=== PATIENT | female | born 1945 | race Caucasian/White ===

== ENCOUNTER 2020-06-06 14:37 | Emergency (ER) | payer MEDICARE, OTHER, SELFPAY ==
--- NOTE | ~2020-06-06 | CT_ITS ---
EXAMINATION: CT ABDOMEN AND PELVIS WITHOUT CONTRAST CLINICAL INFORMATION: Abdominal pain. Nausea. Vomiting. COMPARISON: CT scan abdomen pelvis 12/11/2018 TECHNIQUE: Multidetector volumetric imaging was performed from the superior aspect of the liver through the pubic symphysis. Sagittal and coronal reformatted images were obtained on the technologist's workstation. This CT examination was performed using dose optimization techniques as appropriate, variously including the following: *Automated exposure control *Adjustment of mA and/or kV according to patient size (this includes techniques or standardized protocols for targeted exams where dose is matched to indication/reason for exam; i.e. extremities or head) *Use of iterative reconstruction technique DLP: 734 mGy-cm FINDINGS: LUNG BASES: The visualized lung bases are unremarkable. LIVER, GALLBLADDER, AND BILIARY TREE: The liver is normal in size, shape, and attenuation. No focal hepatic lesion or biliary ductal dilatation is present. The gallbladder is unremarkable with no evidence of radiopaque gallstones, gallbladder wall thickening, or obvious pericholecystic inflammatory changes. PANCREAS: Unremarkable. SPLEEN: Unremarkable. ADRENAL GLANDS: Unremarkable. KIDNEYS AND URETERS: The kidneys are normal in size, shape, and attenuation. No hydronephrosis, hydroureter, or calculi seen. No perinephric stranding. BLADDER: Unremarkable. GASTROINTESTINAL TRACT: There are scattered diverticula of the sigmoid colon and descending colon. There is no diverticulitis. There is no bowel wall thickening /edema. There is no bowel obstruction. There is a moderate volume of stool in the colon. The appendix is nonvisualized . The small bowel loops are unremarkable. The stomach is normal. There is no hiatal hernia. ABDOMINAL WALL: No significant hernia is appreciated. LYMPH NODES: Normal. VASCULAR: Scattered vascular wall calcifications of the aorta. There is no aneurysm. PELVIC VISCERA: Unremarkable. OSSEOUS STRUCTURES: Multilevel degenerative spondylosis spine. Degenerative joint disease of hips bilateral. No acute osseous abnormalities. CT/CT abdomen pelvis wo con IMPRESSION: There is no acute abnormality the abdomen or the pelvis. There is diverticulosis of the sigmoid colon and left colon but no evidence of diverticulitis
[2020-06-06 16:32] VITALS: BP 145/86; PULSE 85; RESP 18; TEMP 36.4; O2SAT 97; BMI 31.7
--- NOTE | 2020-06-06 23:26 | ED.ABDPAIN ---
HPI - Abdominal Pain General Chief Complaint: Abdominal Pain Stated Complaint: abd pain Time Seen by Provider: 06/06/20 23:09 Source: patient Mode of arrival: ambulatory Limitations: no limitations History of Present Illness HPI narrative: 75 years old female walked in with lower abdominal pain, started 4 days ago, described it as a moderate dull/crampy abdominal pain, 8/10, pain is constant for the past 4 days, pain is associated with nausea and vomiting, and diarrhea with bright red blood toward the end of the bowel movement. Food makes the symptoms worse, nothing make it better, patient had similar symptoms in the past when she had diverticulitis the patient did not require hospitalization for the symptoms in the past. No past surgical abdominal history. Related Data Previous Rx's Medication Instructions Recorded ondansetron HCl [Zofran] 4 mg PO Q8H PRN #7 tab 06/07/20 Allergies Allergy/AdvReac Type Severity Reaction Status Date / Time latex [LATEX] Allergy Unknown BREATHING Verified 06/06/20 16:31 DIFFICULTIES Sulfa (Sulfonamide Allergy Unknown BREATHING Verified 06/06/20 16:31 Antibiotics) DIFFICULTIES [SULFA (SULFONAMIDE ANTIBIOTICS)] SEASONAL ALLERGIES Allergy Unknown SINUS Uncoded 12/30/19 15:16 PROBLEMS Review of Systems Review of Systems All other systems are reviewed and are negative Constitutional: Reports as per HPI and Reports no additional constitutional complaints Eyes: Reports as per HPI and Reports no additional eye complaints Reports system reviewed and no additional complaints, except as documented Cardiovascular: Reports as per HPI and Reports no additional cardiovascular complaints Respiratory: Reports as per HPI and Reports no additional respiratory complaints Gastrointestinal: Reports as per HPI and Reports no additional gastrointestinal complaints Genitourinary: Reports no additional female genitourinary complaints Musculoskeletal: Reports no additional musculoskeletal complaints Skin/Breast: Reports system reviewed and no additional complaints, except as docu Psychiatric: Reports no additional psychiatric complaints Endocrine: Reports no additional endocrine complaints Hematologic/Lymphatic: Reports no additional hematologic/lymphatic complaints Allergic/Immunologic: Reports no additional allergic/immunologic complaints Reports system reviewed and no additional complaints, except as documented and Reports Abnormal speech present Physical Exam Vital Signs: Vital Signs: Last Vital Signs Temp 98.6 F 06/07/20 00:00 Pulse 75 06/07/20 00:00 Resp 16 06/07/20 00:00 BP 141/83 H 06/07/20 00:00 Pulse Ox 99 06/07/20 00:00 Body Mass Index 31.7 Vital signs have been reviewed as appeared to be correct. Blood pressure in the high range, Heart rate normal. Respiration rate normal. Temperature normal. Oxygen saturation normal. Appearance: Alert. Oriented X3. No acute distress. Head: Normal external exam. Normocephalic. Atraumatic. No Bates signs noted. No raccoon eyes noted Eyes: PERRLA. EOMI. Conjunctiva and sclera normal. Eyelids normal. ENT: TM's Normal. Pharynx normal. Uvula midline. Moist mucous membranes. No trismus noted. No drooling noted. No muffled voice noted. Neck: Normal inspection. Neck supple. FROM. No adenopathy. Thyroid Normal. No meningeal signs. No neck mass noted. CVS: Normal heart rate and rhythm. Heart sound normal. No murmurs noted. Pulses normal throughout. Respiratory: No respiratory distress. Painless inspiration. Breath sounds normal. No wheezes/rales/rhonchi noted. Chest nontender. No accessory muscle usage noted or decreased air movement noted. Abdomen: Soft, mild lower abdominal tenderness, no rebound tenderness, no guarding. Bowel sounds normal in all 4 quadrants. No distention noted. No organomegaly noted. No visible injury noted. Back: No CVA tenderness. Full range of motion noted. Skin: Skin warm and dry. Normal skin color. Normal skin turgor. No rashes/lesions/lacerations noted. Extremities: No lower extremity edema. Extremities exhibit normal range of motion. Extremities nontender. Neuro: Oriented X 3. No motor deficit. No sensory deficit. Reflexes normal. Course Course Course Narrative: 75-year-old female presented with lower abdominal pain, patient had unremarkable labs no leukocytosis, no sign of dehydration, stable vital signs, CT of the abdomen pelvis showed no acute intra-abdominal pathology. Patient is also known to have IBS which could contribute to patient's symptoms. Patient unable to give us UA in the emergency department but patient declined any UTI symptoms. Discharge the patient with Zofran prescription and encouraged to drink plenty of fluids. MDM - Abdominal Pain Lab Data Attestation: I reviewed the patient's lab results. Result diagrams: 06/06/20 23:57 06/06/20 23:57 Labs: Lab Results 06/06/20 06/06/20 06/06/20 Range/Units 23:56 23:57 23:57 WBC 7.9 (4.8-10.8) X10*3/uL RBC 4.74 (4.20-5.50) X10*6/uL Hgb 14.3 (12.0-16.0) g/dl Hct 43.5 (37-47) % MCV 91.8 (80-98) fL MCH 30.2 (27.0-33.0) pg MCHC 32.9 (31.0-35.0) g/dl RDW 12.2 (11.0-16.0) % Plt Count 262 (160-400) X10*3/uL MPV 9.3 L (9.4-12.3) fL Immature Gran % (Auto) 0.4 (0.0-0.4) % Neut % (Auto) 68.6 (45-73) % Lymph % (Auto) 21.3 (20-40) % [place] % (Auto) 8.3 (2-11) % Eos % (Auto) 0.8 (0-4) % Baso % (Auto) 0.6 (0-2) % Lymph # (Auto) 1.7 (1.2-4.9) X10*3/uL [place] # (Auto) 0.7 (0.1-1.2) X10*3/uL Eos # (Auto) 0.1 (0.0-0.4) X10*3/uL Baso # (Auto) 0.1 (0.0-0.2) X10*3/uL Abs Immat Gran (auto) 0.03 (0.00-0.03) X10*3/uL Absolute Neuts (auto) 5.4 (2.0-8.3) X10*3/uL Absolute Nucleated RBC 0.000 (0.0-0.012) X10*3/uL Nucleated RBC % (auto) 0.0 (0.0-0.2) /100WBC Sodium 138 (135-145) mmol/L Potassium 3.9 (3.3-5.1) mmol/L Chloride 102 (96-108) mmol/L Carbon Dioxide 20 L (22-29) mmol/L Anion Gap 20 (12-20) BUN 14 (9-16) mg/dL Creatinine 0.84 (0.5-1.4) mg/dL Estim Creat Clear Calc 61.5 Estimated GFR > 60 Random Glucose 75 (60-115) mg/dL Lactic Acid (0.5-2.0) mmol/L Calcium 9.5 (8.4-10.2) mg/dL Total Bilirubin 1.4 H (0.0-1.0) mg/dL Direct Bilirubin 0.4 (0.0-0.5) mg/dL AST 25 (5-31) U/L ALT 22 (0-31) U/L Alkaline Phosphatase 71 (39-117) U/L Troponin I High Sens 4.3 (<3.5-17.0) ng/L Total Protein 6.9 (6.5-8.0) g/dL Albumin 4.4 (3.5-5.0) g/dL Lipase 23 (8-78) U/L 06/06/20 Range/Units 23:57 WBC (4.8-10.8) X10*3/uL RBC (4.20-5.50) X10*6/uL Hgb (12.0-16.0) g/dl Hct (37-47) % MCV (80-98) fL MCH (27.0-33.0) pg MCHC (31.0-35.0) g/dl RDW (11.0-16.0) % Plt Count (160-400) X10*3/uL MPV (9.4-12.3) fL Immature Gran % (Auto) (0.0-0.4) % Neut % (Auto) (45-73) % Lymph % (Auto) (20-40) % [place] % (Auto) (2-11) % Eos % (Auto) (0-4) % Baso % (Auto) (0-2) % Lymph # (Auto) (1.2-4.9) X10*3/uL [place] # (Auto) (0.1-1.2) X10*3/uL Eos # (Auto) (0.0-0.4) X10*3/uL Baso # (Auto) (0.0-0.2) X10*3/uL Abs Immat Gran (auto) (0.00-0.03) X10*3/uL Absolute Neuts (auto) (2.0-8.3) X10*3/uL Absolute Nucleated RBC (0.0-0.012) X10*3/uL Nucleated RBC % (auto) (0.0-0.2) /100WBC Sodium (135-145) mmol/L Potassium (3.3-5.1) mmol/L Chloride (96-108) mmol/L Carbon Dioxide (22-29) mmol/L Anion Gap (12-20) BUN (9-16) mg/dL Creatinine (0.5-1.4) mg/dL Estim Creat Clear Calc Estimated GFR Random Glucose (60-115) mg/dL Lactic Acid 1.3 (0.5-2.0) mmol/L Calcium (8.4-10.2) mg/dL Total Bilirubin (0.0-1.0) mg/dL Direct Bilirubin (0.0-0.5) mg/dL AST (5-31) U/L ALT (0-31) U/L Alkaline Phosphatase (39-117) U/L Troponin I High Sens (<3.5-17.0) ng/L Total Protein (6.5-8.0) g/dL Albumin (3.5-5.0) g/dL Lipase (8-78) U/L Imaging Data CT scan - abdomen: Radiologist's impression: There is no acute abnormality the abdomen or the pelvis. There is diverticulosis of the sigmoid colon and left colon but no evidence of diverticulitis. Discharge Plan Discharge Clinical Impression: Abdominal pain Patient Disposition: Home, Self-Care Instructions: Abdominal Pain (ED) Prescriptions: New ondansetron HCl [Zofran] 4 mg tablet 4 mg PO Q8H PRN (Reason: nausea and vomiting) Qty: 7 RF: 0 Referrals: Huong Gordon MD [Primary Care Provider] - 2 days PMF Past Medical History Medical History Diverticulitis IBS (irritable bowel syndrome) Social History Social History Alcohol intake: never Smoking Status: Current every day smoker Use of substances other than those prescribed or required for medical reasons: No Advance Directives: No
[2020-06-06 23:43] VITALS: BP 137/74; PULSE 90; RESP 18; TEMP 37; O2SAT 96
[2020-06-07] VITALS: BP 141/83; PULSE 75; RESP 16; TEMP 37; O2SAT 99
[2020-06-07 00:01] LABS: MANUAL DIFF FLAG NO
[2020-06-07 00:04] LABS: Basophils Absolute Auto 0.1 X10*3/uL (0.0-0.2); Basophils Percent Auto 0.6 % (0-2); Eosinophils Absolute Auto 0.1 X10*3/uL (0.0-0.4); Eosinophils Percent Auto 0.8 % (0-4); Hematocrit 43.5 % (37-47); Hemoglobin 14.3 g/dl (12.0-16.0); Imm Gran Abs Auto 0.03 X10*3/uL (0.00-0.03); Imm Gran Pct Auto 0.4 % (0.0-0.4); Lymphocytes Absolute Auto 1.7 X10*3/uL (1.2-4.9); Lymphocytes Percent Auto 21.3 % (20-40); Mean Corpuscular HGB Conc 32.9 g/dl (31.0-35.0); Mean Corpuscular Hemoglobin 30.2 pg (27.0-33.0); Mean Corpuscular Volume 91.8 fL (80-98); Mean Platelet Volume 9.3 fL (9.4-12.3); Monocytes Absolute Auto 0.7 X10*3/uL (0.1-1.2); Monocytes Percent Auto 8.3 % (2-11); Neutrophils Absolute Auto 5.4 X10*3/uL (2.0-8.3); Neutrophils Percent Auto 68.6 % (45-73); Platelet Count 262 X10*3/uL (160-400); Red Blood Count 4.74 X10*6/uL (4.20-5.50); Red Cell Distribution Width 12.2 % (11.0-16.0); White Blood Count 7.9 X10*3/uL (4.8-10.8)
[2020-06-07] MEDS: ondansetron HCL 4 MG/2 ML VIAL IVPUSH (00:05)
[2020-06-07] MEDS: Ketorolac Tromethamine 15 MG/ML VIAL IV (00:05)
[2020-06-07] MEDS: 0.9 % Sodium Chloride 1,000 ML 999 ML IVCONT (00:06)
[2020-06-07 00:23] LABS: Lactic Acid 1.3 mmol/L (0.5-2.0)
[2020-06-07 00:29] LABS: Alanine Aminotransferase 22 U/L (0-31); Albumin Level 4.4 g/dL (3.5-5.0); Alkaline Phosphatase 71 U/L (39-117); Anion Gap 20 (12-20); Aspartate Amino Transferase 25 U/L (5-31); Bilirubin Direct 0.4 mg/dL (0.0-0.5); Bilirubin Total 1.4 mg/dL (0.0-1.0); Blood Urea Nitrogen 14 mg/dL (9-16); Calcium 9.5 mg/dL (8.4-10.2); Carbon Dioxide 20 mmol/L (22-29); Chloride 102 mmol/L (96-108); Creatinine Clr Calc Pharmacy 61.5; Estimated Glomerular Filt Rate > 60; Glucose Random 75 mg/dL (60-115); Lipase 23 U/L (8-78); Potassium 3.9 mmol/L (3.3-5.1); Sodium 138 mmol/L (135-145); Total Protein 6.9 g/dL (6.5-8.0)
[2020-06-07 00:35] LABS: Troponin-I High Sensitivity 4.3 ng/L (<3.5-17.0)
--- NOTE | 2020-06-07 01:18 | PC.NURSE ---
patient ambualted to bathroom with steady gait to bathroom.
[2020-06-07] MEDS: oxyCODONE HCl Immed Release 5 MG TABLET PO (01:58)
[2020-06-07 02:29] LABS: Glucose Urine UA NEG (NEG); Leukocyte Esterase Urine NEG (NEG); Nitrite Urine NEG (NEG); PH 5.5 (5.0-8.0); Specific Gravity - Urine >= 1.030 (1.005-1.025); Urine Blood TRACE (NEG); Urine Ketones >=80 MG/DL (NEG); Urine Protein NEG (NEG-TRACE)
[2020-06-07 02:37] LABS: Appearance Urine CLEAR; Color Urine YELLOW
[2020-06-07 03:05] LABS: Squamous Epithelial Cell Urine 1+ /LPF
[2020-06-07 03:07] LABS: Bacteria Urine 1+ /LPF; Mucus Urine 1+ /LPF
== END 2020-06-07 02:03 | disposition home or self-care (01) ==
PROVIDERS: Emergency Provider Emergency Medicine; PCP Internal Medicine
DX: R10.30 Lower abdominal pain, unspecified (principal); K57.30 Diverticulosis of large intestine without perforation or abscess without bleeding; R11.2 Nausea with vomiting, unspecified; F17.200 Nicotine dependence, unspecified, uncomplicated
CPT/HCPCS: 36415; 74176; 80048; 80076; 81001; 83605; 83690; 84484; 85025; 96361; 96374; 96375; 99284; J1885; J2405

== ENCOUNTER 2021-06-25 11:04 | Outpatient (REF) | payer MEDICARE, OTHER, SELFPAY ==
--- NOTE | ~2021-06-25 | XR_ITS ---
EXAMINATION: XR SINUSES CLINICAL INFORMATION: Sinusitis COMPARISON: None TECHNIQUE: The sinuses are imaged in 6 views. FINDINGS: These sinuses appear well-aerated and clear. There is no focal mucosal thickening or polypoid mass or air-fluid level. No visible sinus expansion or bony thickening or sclerosis. The visualized mastoid air cells appear clear. There is no mastoid sclerosis or fluid levels. There are some sclerotic densities overlying the frontal bone which on lateral view appears to be related to incidental hyperostosis frontalis. There is symmetric mineralization of the stylohyoid ligaments. XR/XR sinus min 3V IMPRESSION: Sinuses clear. No focal mucosal thickening or fluid level.
== END 2021-06-25 11:05 | disposition home or self-care (01) ==
LOC: HO.XRAY 11:04
PROVIDERS: Visit Provider Otolaryngology
DX: J32.9 Chronic sinusitis, unspecified (principal)
CPT/HCPCS: 70220

== ENCOUNTER 2022-11-14 11:11 | Emergency (ER) | payer MEDICARE, OTHER, SELFPAY ==
--- NOTE | ~2022-11-14 | US_ITS ---
EXAMINATION: US ABDOMEN LIMITED CLINICAL INFORMATION: Right upper quadrant pain, elevated lipase. COMPARISON: None available. TECHNIQUE: Real-time imaging of the gallbladder. FINDINGS: Note that this ultrasound examination was targeted to the gallbladder. PANCREAS: Not well-visualized secondary to habitus LIVER: The visualized portions of the liver are unremarkable. No biliary ductal dilatation is evident. Echogenicity is normal. The liver is incompletely imaged. GALLBLADDER: Normal. The gallbladder is physiologically distended without evidence of stones, sludge, polyps, wall thickening or pericholecystic fluid. COMMON BILE DUCT: Normal in caliber measuring 0.3 cm in diameter. FREE FLUID: None. US/US abdomen limited IMPRESSION: Normal gallbladder.
--- NOTE | ~2022-11-14 | CT_ITS ---
EXAMINATION: CT ABDOMEN AND PELVIS WITH CONTRAST CLINICAL INFORMATION: Abdominal pain. COMPARISON: None available. TECHNIQUE: Multidetector volumetric images were obtained from the superior aspect of the liver through the pubic symphysis following administration 85 mL of Omnipaque 350 intravenous contrast. Sagittal and coronal reformatted images were obtained on the technologist's workstation. Oral contrast: No This CT examination was performed using dose optimization techniques as appropriate, variously including the following: *Automated exposure control *Adjustment of mA and/or kV according to patient size (this includes techniques or standardized protocols for targeted exams where dose is matched to indication/reason for exam; i.e. extremities or head) *Use of iterative reconstruction technique DLP: 665 mGy-cm FINDINGS: LUNG BASES: The visualized lung bases are unremarkable. LIVER, GALLBLADDER, AND BILIARY TREE: The liver is normal in size, shape, and attenuation. No focal hepatic lesion or biliary ductal dilatation is present. The gallbladder is unremarkable with no evidence of radiopaque gallstones, gallbladder wall thickening, or obvious pericholecystic inflammatory changes. PANCREAS: Unremarkable. SPLEEN: Unremarkable. ADRENAL GLANDS: Unremarkable. KIDNEYS AND URETERS: The kidneys are normal in size, shape, and attenuation. No hydronephrosis, hydroureter, or calculi seen. No perinephric stranding. BLADDER: Unremarkable. GASTROINTESTINAL TRACT: There is scattered stool, diverticuli and gas seen throughout the colon without any significant distention. The small bowel loops are normal caliber. Appendix is not visualized. There is no inflammatory process. No free fluid. ABDOMINAL WALL: No significant hernia is appreciated. LYMPH NODES: Normal. VASCULAR: Unremarkable. PELVIC VISCERA: The uterus is anteverted and appears unremarkable. There is no adnexal mass. There is no free fluid. There is no abnormal pelvic lymphadenopathy. OSSEOUS STRUCTURES: There are vacuum disc phenomena and endplate sclerosis at L4-L5 and L5-S1 disc. Mild degenerative disc changes are seen in lower dorsal spine as well.. No aggressive lytic process seen. CT/CT abdomen pelvis w IV con IMPRESSION: 1. No acute intra-abdominal process seen. Colonic diverticulosis and mild constipation. No diverticulitis seen. Fleischner guidelines were followed.
[2022-11-14 11:19] VITALS: BP 185/108; PULSE 95; RESP 17; TEMP 36.8; O2SAT 98; BMI 33.0
--- NOTE | 2022-11-14 11:19 | ED.GENADULT ---
HPI - General Adult General Chief complaint: Abdominal Pain Stated complaint: ? DIVITICULITIS Time Seen by Provider: 11/14/22 12:39 Source: patient Mode of arrival: ambulatory History of Present Illness HPI narrative: 77-year-old female with 2 day history of epigastric abdominal pain that she describes as a sharp yoshi poking her in the middle the stomach in going through to the back with another crampy type pain as she points to her right upper quadrant with associated nausea and vomiting. Patient describes that it feels like her prior episodes of diverticulitis but reports she has been having uncomplicated bowel movements and as a matter of fact reports several loose stools a day for the past month. Related Data Previous Rx's Medication Instructions Recorded ondansetron HCl 4 mg tablet 4 mg PO Q8H PRN nausea and 06/07/20 (Zofran) vomiting #7 tabs ondansetron HCl 4 mg tablet 4 mg PO Q8H PRN nausea and 11/14/22 vomiting 4 days #10 tabs Allergies Allergy/AdvReac Type Severity Reaction Status Date / Time latex [LATEX] Allergy Unknown BREATHING Verified 11/14/22 11:19 DIFFICULTIES Sulfa (Sulfonamide Allergy Unknown BREATHING Verified 11/14/22 11:19 Antibiotics) DIFFICULTIES [SULFA (SULFONAMIDE ANTIBIOTICS)] SEASONAL ALLERGIES Allergy Unknown SINUS Uncoded 11/14/22 11:19 PROBLEMS Review of Systems Review of Systems: Pertinent positives and negatives as stated in HPI [facility] Past Medical History Source: nursing notes reviewed Medical History Diverticulitis IBS (irritable bowel syndrome) Social History Social History Alcohol intake: never Smoked in Last 30 Days: No Use of substances other than those prescribed or required for medical reasons: Yes Substance Use Type: Marijuana Substance Use Type Other:: gummies Substance Use Frequency: Daily Advance Directives: No Advance Directives Information Provided: No Physical Exam ED Vital Signs: Vital Signs - 24 hr 11/14/22 11:19 11/14/22 13:37 11/14/22 16:47 Temperature 98.2 F 98.1 F Pulse Rate 95 84 Respiratory Rate 17 16 Blood Pressure 185/108 H 181/110 H 165/96 H Pulse Oximetry 98 95 Oxygen Delivery Method Room Air Room Air BMI result Body Mass Index 33.0 VITAL SIGNS: Reviewed. GENERAL: Well developed, well nourished, in no acute distress. HEAD: Normocephalic/atraumatic EYES: PERRLA, EOMI EARS: Ext canals without abnormality NOSE: Nares patent bilateral OROPHARYNX: no oral lesions noted, posterior pharynx clear NECK: Supple, no adenopathy LUNGS: Normal breath sounds. No adventitious sounds or accessory muscle use. SpO2<95> CARDIOVASCULAR: Regular rate and rhythm without noted murmurs, no JVD or lower extremity edema. ABDOMEN: Soft, epigastric discomfort, non-distended with bowel sounds. MUSCULOSKELETAL: No tenderness, deformities, or effusions noted on gross inspection. EXTREMITIES: No cyanosis, clubbing or edema. SKIN: Inspection of the skin reveals no rashes NEUROLOGIC: Alert and oriented x 4. Strength and sensation to light touch were grossly intact x 4. Course Course Course Narrative: This is a rapid medical exam: Additional HPI, ROS, PE not included below will be deferred to primary provider. Patient is a 77-year-old female presenting to the emergency department with complaint of generalized abdominal pain and bloating for the past 3 weeks. Reports nausea but denies vomiting, diarrhea, constipation. 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 Reports history of IBS as well, and states symptoms feel similar to both IBS and prior episodes of diverticulitis. Recently had her synthroid reduced 3 months ago. Hypertensive in triage, denies history of HTN. Plan: labs, UA Medications Administered Discontinued Medications Generic Name Dose Route Start Last Admin Trade Name Birdq PRN Reason Stop Dose Admin Amlodipine Besylate 5 mg 11/14/22 13:49 11/14/22 14:06 Amlodipine Besylate 5 Mg Tablet PO 11/14/22 13:50 5 mg ONCE ONE Administration Protocol Iohexol 100 ml 11/14/22 15:30 11/14/22 15:31 Iohexol 350 Mg/Ml 100 Ml Infus..Btl IV 11/14/22 15:31 85 ml ONCE ONE Administration Medical Decision Making Medical Decision Making MDM Narrative: 77-year-old female with history and clinical presentation, DDX: Cholecystitis, pancreatitis, gastritis, diverticulitis, UTI. I reviewed all investigations there is no evidence of acute infection as hematologic indices are negative for leukocytosis, left shift there is no evidence of anemia or thrombocytopenia and patient is not febrile. Chemistry indices are grossly within normal limits with the exception of an elevated lipase which is likely the cause of patient's pain, ultrasound was negative for evidence of cholelithiasis but triglyceride levels are within normal limits and follow-up CT scan with IV contrast is not identifying any mass or diverticulitis. Will discharge the patient with instructions to increase her fluid intake and provided with a prescription for Zofran to manage the nausea. Otherwise, urinalysis is negative for UTI or hematuria. My interpretation is that patient likely has pancreatitis secondary to biliary causes but she is tolerating oral intake and will refer her to her PCP. Differential Diagnosis Differential Diagnoses: The differential diagnosis associated with the presentation includes Please see the discussion above Admission/Observation Consideration of admission/observation: Escalation of care including admission/observation considered Please see the discussion above Lab Data MDM Lab Attestation statement: I reviewed the patient's lab results. Please see the discussion above 11/14/22 11:35 11/14/22 11:35 Labs: Lab Results 11/14/22 11/14/22 11/14/22 Range/Units 11:35 11:35 12:19 WBC 7.0 (4.8-10.8) X10*3/uL RBC 4.92 (4.20-5.50) X10*6/uL Hgb 14.6 (12.0-16.0) g/dl Hct 45.7 (37.0-47.0) % MCV 92.9 (80.0-98.0) fL MCH 29.7 (27.0-33.0) pg MCHC 31.9 (31.0-35.0) g/dl RDW 12.7 (11.0-16.0) % Plt Count 238 (160-400) X10*3/uL MPV 9.3 L (9.4-12.3) fL Immature Gran % (Auto) 0.6 H (0.0-0.4) % Neut % (Auto) 67.7 (45-73) % Lymph % (Auto) 21.9 (20-40) % [place] % (Auto) 8.0 (2-11) % Eos % (Auto) 0.9 (0-4) % Baso % (Auto) 0.9 (0-2) % Lymph # (Auto) 1.5 (1.2-4.9) X10*3/uL [place] # (Auto) 0.6 (0.1-1.2) X10*3/uL Eos # (Auto) 0.1 (0.0-0.4) X10*3/uL Baso # (Auto) 0.1 (0.0-0.2) X10*3/uL Abs Immat Gran (auto) 0.04 H (0.00-0.03) X10*3/uL Absolute Neuts (auto) 4.7 (2.0-8.3) x10*3/uL Absolute Nucleated RBC 0.000 (0.0-0.012) X10*3/uL Nucleated RBC % (auto) 0.0 (0.0-0.2) /100WBC Sodium 140 (135-145) mmol/L Potassium 4.1 (3.3-5.1) mmol/L Chloride 107 (96-108) mmol/L Carbon Dioxide 23 (22-29) mmol/L Anion Gap 14 (12-20) BUN 13 (9-16) mg/dL Creatinine 0.86 (0.5-1.4) mg/dL Estim Creat Clear Calc 59.4 Estimated GFR > 60 Random Glucose 101 (60-115) mg/dL Calcium 10.0 (8.4-10.2) mg/dL Total Bilirubin 0.9 (0.0-1.0) mg/dL AST 18 (5-31) U/L ALT 18 (0-31) U/L Alkaline Phosphatase 62 (39-117) U/L Total Protein 6.9 (6.5-8.0) g/dL Albumin 4.2 (3.5-5.0) g/dL Triglycerides 79 mg/dL Cholesterol 306 mg/dL LDL Cholesterol, Calc 196 mg/dl HDL Cholesterol 95 mg/dL Lipase 115 H (8-78) U/L TSH 4.44 H (0.32-4.0) uIU/mL Free T4 0.89 (0.71-1.85) ng/dL Urine Color Yellow Urine Appearance Clear Urine pH 5.5 (5.0-9.0) Ur Specific [place] 1.015 (1.005-1.025) Urine Protein Negative (Neg-Trace) mg/dL Urine Glucose (UA) Negative (Negative) mg/dL Urine Ketones Negative (Negative) mg/dL Urine Blood Negative (Negative) Urine Nitrite Negative (Negative) Ur Leukocyte Esterase Negative (Negative) Radiology Impression Discussion of test interpretation with radiology: I have reviewed the radiologist's reading. Radiologist Impression: Please see the discussion above External Record Review External record reviewed: Outpatient record and Prior outpatient labs Chronic Conditions Patient?s care impacted by: Hypertension Critical Care Time Critical Care Time Critical Care Time: Yes Total Critical Care Time: 30 Attestation: I personally attest to this time spent taking care of the patient. Discharge Plan Discharge Clinical Impression: Constipation, Pancreatitis, Elevated blood pressure reading Patient Disposition: Home, Self-Care Instructions: Constipation (ED), High Fiber Diet (ED), DASH Eating Plan (ED) Additional Instructions: 1. You have been noted to have high blood pressure and will need to monitor your salt intake and follow-up with your primary care doctor. 2. You have inflammation of the pancreas and should drink water and fluids and gradually increase your diet as the pain resolves. I am sending a prescription to your pharmacy for antinausea medication. 3. It is very important for you to follow-up with your primary care doctor in the next 1-2 days. Return to the ER for any worsening symptoms as and no improvement in abdominal pain or uncontrolled nausea and vomiting. Prescriptions: New ondansetron HCl 4 mg tablet 4 mg PO Q8H PRN (Reason: nausea and vomiting) 4 Days Qty: 10 0RF No Action ondansetron HCl [Zofran] 4 mg tablet 4 mg PO Q8H PRN (Reason: nausea and vomiting) Qty: 7 0RF Interventions: ED Discharge Assessment Last Done: 11/14/22 16:47 Discharge Date/Time: 11/14/22 16:47
[2022-11-14 11:39] LABS: MANUAL DIFF FLAG NO
[2022-11-14 11:47] LABS: Basophils Absolute Auto 0.1 X10*3/uL (0.0-0.2); Basophils Percent Auto 0.9 % (0-2); Eosinophils Absolute Auto 0.1 X10*3/uL (0.0-0.4); Eosinophils Percent Auto 0.9 % (0-4); Hematocrit 45.7 % (37.0-47.0); Hemoglobin 14.6 g/dl (12.0-16.0); Imm Gran Abs Auto 0.04 X10*3/uL (0.00-0.03); Imm Gran Pct Auto 0.6 % (0.0-0.4); Lymphocytes Absolute Auto 1.5 X10*3/uL (1.2-4.9); Lymphocytes Percent Auto 21.9 % (20-40); Mean Corpuscular HGB Conc 31.9 g/dl (31.0-35.0); Mean Corpuscular Hemoglobin 29.7 pg (27.0-33.0); Mean Corpuscular Volume 92.9 fL (80.0-98.0); Mean Platelet Volume 9.3 fL (9.4-12.3); Monocytes Absolute Auto 0.6 X10*3/uL (0.1-1.2); Neutrophils Absolute Auto 4.7 x10*3/uL (2.0-8.3); Neutrophils Percent Auto 67.7 % (45-73); Platelet Count 238 X10*3/uL (160-400); Red Blood Count 4.92 X10*6/uL (4.20-5.50); Red Cell Distribution Width 12.7 % (11.0-16.0)
[2022-11-14 12:07] LABS: Alanine Aminotransferase 18 U/L (0-31); Albumin Level 4.2 g/dL (3.5-5.0); Alkaline Phosphatase 62 U/L (39-117); Anion Gap 14 (12-20); Aspartate Amino Transferase 18 U/L (5-31); Bilirubin Total 0.9 mg/dL (0.0-1.0); Blood Urea Nitrogen 13 mg/dL (9-16); Carbon Dioxide 23 mmol/L (22-29); Chloride 107 mmol/L (96-108); Creatinine Clr Calc Pharmacy 59.4; Estimated Glomerular Filt Rate > 60; Glucose Random 101 mg/dL (60-115); Lipase 115 U/L (8-78); Potassium 4.1 mmol/L (3.3-5.1); Sodium 140 mmol/L (135-145); Total Protein 6.9 g/dL (6.5-8.0)
[2022-11-14 12:17] LABS: TSH reflex Free T4 4.44 uIU/mL (0.32-4.0)
[2022-11-14 12:28] LABS: Appearance Urine Clear; Color Urine Yellow; Glucose Urine UA Negative (Negative); Leukocyte Esterase Urine Negative (Negative); Nitrite Urine Negative (Negative); PH 5.5 (5.0-9.0); Specific Gravity - Urine 1.015 (1.005-1.025); Urine Blood Negative (Negative); Urine Ketones Negative (Negative); Urine Protein Negative (Neg-Trace)
[2022-11-14 12:53] LABS: Free T4 (Free Thyroxine) 0.89 ng/dL (0.71-1.85)
[2022-11-14 13:37] VITALS: BP 181/110; PULSE 84; RESP 16; TEMP 36.7; O2SAT 95
[2022-11-14] MEDS: amLODIPine Besylate 5 MG TABLET PO (14:06)
--- NOTE | 2022-11-14 14:22 | PC.NURSE ---
pt axox4, vss, respirations even and unlabored, skin wpd; bp elevated medicated per order. pt c/o frequent bm; soft stool denies diarrhea; upper abd. pain, nausea; denies vomiting. pt states abd. pain radiates to back. states shes been taking immodium to manage sx. +bsx4; last bm today. no distention; tenderness noted on central upper abd. upon palpation. u/s at bedside. all needs met at this time; call garay within reach.
[2022-11-14 15:22] LABS: Cholesterol 306 mg/dL; HDL Cholesterol 95 mg/dL; LDL Cholesterol Calculated 196 mg/dl; Triglycerides 79 mg/dL
[2022-11-14] MEDS: iohexoL 350 MG/ML 100 ML INFUS..BTL IV (15:31)
[2022-11-14 16:47] VITALS: BP 165/96
== END 2022-11-14 16:47 | disposition home or self-care (01) ==
PROVIDERS: Registered Nurse Emergency; Emergency Provider Student in an Organized Health Care Education/Training Program
DX: K59.00 Constipation, unspecified (principal); K85.90 Acute pancreatitis without necrosis or infection, unspecified; R03.0 Elevated blood-pressure reading, without diagnosis of hypertension; R10.13 Epigastric pain; Z79.899 Other long term (current) drug therapy
CPT/HCPCS: 36415; 74177; 76705; 80053; 80061; 81003; 83690; 84439; 84443; 85025; 99284; Q9967

== ENCOUNTER 2025-01-17 15:57 | Outpatient (AMB) | payer MEDICARE, OTHER, SELFPAY ==
--- OUTSIDE RECORDS SUMMARY | 2025-01-17 18:15 | XMS_ITS | Encounter Summary ---
Author Organization [facility] Address [address] [place] [address] Phone Care Team Providers Care Almond Sorter Name Role Phone Alyse France STAMP CLASSIFIER Primary Care Provi mara Tirsha Perera SPORTS MARKETER Primary Care Provider [phone] Reason for Referral * MRI/CAT Scan - Closed Specialty Diagnoses / Procedures Referred By Valarie vo Referred To Contact Radiology Diagnoses Abdominal pain, unspecified abdominal location Procedures CT Abdomen/Pelvis Shelley Thrasher PA [address] [place] [address] Phone: tel: fax: Referral ID Status Reason Start Date Expiration Date Visits Re quested Visits Authorized [id number] Closed 01/19/2024 01/18/2025 1 1 Encounter Details Date Type Department Care Team (Latest Contact Info) Description 01/19/2024 Transcribe Orders Virtual Department [address] [place] [address] Shelley Thrasher PA [address] [place] [address] Abdominal pain, unspecified abdominal location (Primary Dx) Social History Tobacco Use Types Packs/Day Years Used Date Smoking Tobacco: Former Smokeless Tobacco: Never Education Answer Date Recorded Are you interested in more education? Not on gabriella e 08/09/2022 Are you concerned about learning? Not on file 08/09/2022 No 08/09/2022 No 08/09/2022 Digital Access Answer Date Recorded No 09/04/2022 No 09/04/2022 Reliable internet access at home? Not on file 09/04/2022 Device with a working camera? Not on file Comments Unknown Sex and Gender Information Value Date Recorded Sex Assigned at Not on file Legal Sex Female 10:07 PM EDT Gender Identity Not on file Sexual Orientation Not on file documented as of this encounter Plan of Treatment Upcoming Encounters Date Type Department Care Team (Late st Contact Info) Description 03/23/2025 1:30 PM EST Office Visit [facility] [address] [place] [address] Trisha Perera CNP [address] [facility], [address] [place] [address] 06/02/2025 2:00 PM EST Office Visit [facility] [address] [place] [address] Sara Esquivel MD 22 [facility] [address] [place] [address] documented as of this encounter Results * CT ABDOMEN/PELVIS WITH AND WITHOUT CONTRAST (02/11/2024 5:03 PM EDT) Anatomical Region Laterality Modality Abdomen, Pelvis Computed Tomogra phy 02/14/2024 12:3 4 PM EDT Impressions 02/14/2024 9:07 PM EDT 1. No acute abdominal or pelvic abnormality is identified. 2. Hiatal hernia with reflux. 3. Renal cortical cysts. 4. Fibroid uterus. Narrative 02/14/2024 9:[address] ABDOMEN/PELVIS WITH AND WITHOUT CONTRAST Referring clinician's provided indication for this examination in Epic: Outside Radiology Order; abdomen pain. TECHNIQUE: Multidetector-row CT of the abdomen and pelvis was performed before and after administration of intravenous contrast using tailored dose modulation techniques. Images were reconstructed in the axial, coronal, and sagittal planes. COMPARISON: None. FINDINGS: DEVICES/TUBES/LINES: None. LUNG BASES: The heart size is normal without pericardial effusion. No coronary artery calcifications are present. Hiatal hernia with mild reflux. No paraspinal soft tissue swelling is present. Dependent areas of atelectasis are identified within both lungs. LIVER: Normal size liver with smooth surface contour. No masses. No intrahepatic biliary ductal dilatation. BILIARY: Nondilated gallbladder. No calcifications, wall thickening or gross inflammation. No extrahepatic biliary ductal dilatation. PANCREAS: No duct dilatation, mass lesions or adjacent inflammation. SPLEEN: No splenomegaly or focal splenic lesions. RENAL: No calcifications, hydronephrosis, masses or perinephric collections. No renal cysts are present. No ureteral dilation or focal lesion. ADRENAL: No nodules or thickening. MESENTERY/RETROPERITONEUM: No free fluid or free air. No masses. No retroperitoneal hematoma. NODES: No adenopathy. VASCULAR: The aorta is nonaneurysmal. Moderate vascular calcifications. BOWEL: No mechanical bowel obstruction is present. Small moderate-sized hiatal hernia with reflux. No bowel wall thickening. No acute gastric or small bowel abnormality. Unremarkable appearance of the colon. No wall thickening, focal lesions or acute inflammation. The terminal ileum is normal. The appendix is nonvisualized. PELVIS: The urinary bladder is without wall thickening or luminal abnormality. Heterogeneous fibroid uterus. No gross adnexal masses. No free fluid. SOFT TISSUES: No inguinal or abdominal wall hernia. No masses or collections. BONES: No acute or suspicious osseous lesions. Femoral acetabular degenerative changes are present right greater than the left. Spinal curvature convexity to the right. Procedure Note Nine, Tee Bishop MD - 02/14/2024 CT ABDOMEN/PELVIS WITH AND WITHOUT CONTRAST Referring clinician's provided indication for this examination in Epic:Outside Radiology Order; abdomen pain. TECHNIQUE: Multidetector-row CT of the abdomen and pelvis was performedbefore and after administration of intravenous contrast using tailoreddose modulation techniques. Images were reconstructed in the axial,coronal, and sagittal planes. COMPARISON: None. FINDINGS: DEVICES/TUBES/LINES: None. LUNG BASES: The heart size is normal without pericardial effusion. Nocoronary artery calcifications are present. Hiatal hernia with mildreflux. No paraspinal soft tissue swelling is present. Dependent areas ofatelectasis are identified within both lungs. LIVER: Normal size liver with smooth surface contour. No masses. Nointrahepatic biliary ductal dilatation. BILIARY: Nondilated gallbladder. No calcifications, wall thickening orgross inflammation. No extrahepatic biliary ductal dilatation. PANCREAS: No duct dilatation, mass lesions or adjacent inflammation. SPLEEN: No splenomegaly or focal splenic lesions. RENAL: No calcifications, hydronephrosis, masses or perinephriccollections. No renal cysts are present. No ureteral dilation or focallesion. ADRENAL: No nodules or thickening. MESENTERY/RETROPERITONEUM: No free fluid or free air. No masses. Noretroperitoneal hematoma. NODES: No adenopathy. VASCULAR: The aorta is nonaneurysmal. Moderate vascular calcifications. BOWEL: No mechanical bowel obstruction is present. Small moderate-sizedhiatal hernia with reflux. No bowel wall thickening. No acute gastric orsmall bowel abnormality. Unremarkable appearance of the colon. No wallthickening, focal lesions or acute inflammation. The terminal ileum isnormal. The appendix is nonvisualized. PELVIS: The urinary bladder is without wall thickening or luminalabnormality. Heterogeneous fibroid uterus. No gross adnexal masses. Nofree fluid. SOFT TISSUES: No inguinal or abdominal wall hernia. No masses orcollections. BONES: No acute or suspicious osseous lesions. Femoral acetabulardegenerative changes are present right greater than the left. Spinalcurvature convexity to the right. IMPRESSION: 1. No acute abdominal or pelvic abnormality is identified. 2. Hiatal hernia with reflux. 3. Renal cortical cysts. 4. Fibroid uterus. us Shelley ROSADO IMG CT ABD/PELVIS Final Res ult documented in this encounter Visit Diagnoses Diagnosis Abdominal pain, unspecified abdominal location- Primary Abdominal pain, unspecified abdominal location documented in this encounter Care Teams Almond Sorter Relationship Specialty Start Date End Date Alyse France NP [address] [place] [phone] PCP - General Nurse Practitioner 07/19/22 05/26/24 Trisha Perera CNP [address] [place] [address], [address] [place] [address] [email or web address] PCP - General Nurse Practitioner 05/27/24 documented as of this encounter Additional Source Comments The information contained in this document represents components of the legal health record. It is not the complete legal health record.[facility]
--- OUTSIDE RECORDS SUMMARY | 2025-01-17 18:15 | XMS_ITS | Encounter Summary ---
Author Organization [facility] Address [address] [facility] [address] [place] [phone] Phone Care Team Providers Care Roll Setter Name Role Phone Alyse France BED AND BREAKFAST COOK Primary Care Provi mara Trisha Perera CNP Primary Care Provider [phone] Encounter Details Date Type Department Care Team (Late Contact Info) Description 12/03/2023 Procedure Pass [facility] Endoscopy Admitting Dept Virtual Department [address] [place] [address] Social History Tobacco Use Types Packs/Day Years [...] Encounters Date Type Department Care Team (Late Contact Info) Description 03/23/2025 1:30 PM EST Office Visit [facility] [address] [place], [place] [phone] Trisha Perera CNP 234 [facility], [address] [place] [address] 06/02/2025 2:00 PM EST Office Visit [facility] [address] [place] [address] Sara Esquivel MD [address] [address] documented as of this encounter Visit Diagnoses Not on filedocumented in this encounter Care Teams Roll Setter Relationship Specialty Start Date End Date Alyse France NP [address] [place] [address] PCP - General Nurse Practitioner 07/19/22 05/26/24 Trisha Perera CNP [address] [place] [address] 7 [place] [address] PCP - General Nurse Practitioner 05/27/24 documented as of this encounter Additional Source Comments The information contained in this document represents components of the legal health record. It is not the complete legal health record.[facility]
--- OUTSIDE RECORDS SUMMARY | 2025-01-17 18:15 | XMS_ITS | Encounter Summary ---
Author Organization [facility] Address [address] [place] [address] Phone Care Team Providers Care Coin Box Inspector Name Role Phone Alyse France BRUSH CLEANER Primary Care Provi mara Trisha Perera FISH EGG PACKER Primary Care Provider Encounter Details Date Type Department Care Team (Latest Contact Info) Description 10/08/2023 Transcribe Orders Virtual Department [address] [place] [address] Robinson Elizondo MD [address] [place] [address] [phone] Hiatal hernia (Primary Dx); Early satiety Social History Tobacco Use Types Packs/Day Years [...] Description 03/23/2025 1:30 PM EST Office Visit [facility] [address] [place] [address] Trisha Perera CNP 234 [facility], [address] [place] [address] 06/02/2025 2:00 PM EST Office Visit [facility] [address] [place] [address] Sara Esquivel MD 22 [facility] 3rd [place] [address] [email or web address] documented as of this encounter Results * FL BARIUM SWALLOW ESOPHAGRAM DOUBLE CONTRAST (10/13/2023 2:00 PM EDT) Anatomical Region Laterality Modality Chest Radio Fluoroscop y 10/13/2023 2:44 PM EDT Impressions 10/14/2023 11:18 AM EDT Small hiatal hernia with mild esophageal dysmotility FLUOROSCOPY TIME: 1 minute 27 seconds NUMBER OF IMAGES: [id number] ATTESTATION: I, Christina Pulido as teaching physician, have reviewed the images for this case and if necessary edited the report originally created by Flynn Peres. Narrative 10/14/2023 11:18 AM EDT FL BARIUM SWALLOW ESOPHAGRAM DOUBLE CONTRAST HISTORY: Hiatal hernia. Dysphagia. COMPARISON: No prior imaging available for comparison. OPERATORS: Flynn Peres SUPERVISING PHYSICIAN: Christina Pulido TECHNIQUE: Double contrast barium swallow examination was performed with Sodium Carbonate and Barium. FINDINGS: SWALLOW: No laryngeal penetration demonstrated during this examination. ESOPHAGUS: Motility: Mild esophageal dysmotility evidenced by tertiary contractions and delayed emptying of barium. Mucosa: There is hypertrophy of the cricopharyngeus muscle without evidence of achalasia or a Zenker's diverticulum. No gross mass, ulceration or fixed stricture demonstrated fluoroscopically. Distensibility: Normal. GASTROESOPHAGEAL JUNCTION: There is a small hiatal hernia. GASTROESOPHAGEAL REFLUX: None observed. TABLET: Transient holdup of a 13 mm barium tablet at the level of the GE junction, which cleared after an additional swallow of barium. Procedure Note Christina Pulido MD - 10/14/2023 FL BARIUM SWALLOW ESOPHAGRAM DOUBLE CONTRAST HISTORY: Hiatal hernia. Dysphagia. COMPARISON: No prior imaging available for comparison. OPERATORS: Flynn Peres SUPERVISING PHYSICIAN: Christina Pulido TECHNIQUE: Double contrast barium swallow examination was performed withSodium Carbonate and Barium. FINDINGS: SWALLOW: No laryngeal penetration demonstrated during this examination. ESOPHAGUS: Motility: Mild esophageal dysmotility evidenced by tertiary contractionsand delayed emptying of barium. Mucosa: There is hypertrophy of the cricopharyngeus muscle withoutevidence of achalasia or a Zenker's diverticulum. No gross mass,ulceration or fixed stricture demonstrated fluoroscopically. Distensibility: Normal. GASTROESOPHAGEAL JUNCTION: There is a small hiatal hernia. GASTROESOPHAGEAL REFLUX: None observed. TABLET: Transient holdup of a 13 mm barium tablet at the level of the GEjunction, which cleared after an additional swallow of barium. IMPRESSION: Small hiatal hernia with mild esophageal dysmotility FLUOROSCOPY TIME: 1 minute 27 seconds NUMBER OF IMAGES: [id number] ATTESTATION: I, Christina Pulido as teaching physician, have reviewed theimages for this case and if necessary edited the report originally createdby Flynn Peres. Robinson Elizondo MD [facility] Final Result documented in this encounter Visit Diagnoses Diagnosis Hiatal hernia- Primary Diaphragmatic hernia without mention of obstruction or gangrene Early satiety Hiatal hernia Diaphragmatic hernia without mention of obstruction or gangrene Early satiety documented in this encounter Care Teams Coin Box Inspector Relationship Specialty Start Date End Date Alyse France NP [address] [place] [id number] PCP - General Nurse Practitioner 07/19/22 05/26/24 Trisha Perera CNP [address] [place] [address], [address] [place] [address] (work) [email or web address] PCP - General Nurse Practitioner 05/27/24 documented as of this encounter Additional Source Comments The information contained in this document represents components of the legal health record. It is not the complete legal health record.[facility]
--- OUTSIDE RECORDS SUMMARY | 2025-01-17 18:16 | XMS_ITS | Clinical Summary ---
Author Organization [facility] Address [address] [facility] [address] [place] [address] Phone Care Team Providers Care Mixing Tumbler Operator Name Role Phone Trisha Perera ESTER Primary Care Provider Allergies Active Allergy Reactions Criticality Noted Date Comments Adhesive 07/02/2018 Cephalexin 05/27/2024 Other Reaction(s): abdominal pain, diarrhea Cortisone Palpitations Low 05/27/2024 Can tolerate low doses Latex 07/02/2018 Morphine Itching 05/27/2024 Oxycodone Itching 05/27/2024 Procaine Anxiety Low 05/27/2024 Sulfa (Sulfonamide Antibiotics) 07/02/2018 Medications fluticasone propionate (FLONASE) 50 mcg/actuation nasal spray 2 sprays as needed. 3 Active hydrocortisone (ANUSOL-HC) 2.5 % rectal cream 1 Application as needed. 3 Active cholecalciferol, vitD3,/vit K2 (VITAMIN D3-VITAMIN K2 ORAL) Take 10 mcg by mouth every third day. 2 Active biotin 2,500 mcg Cap Take 1 capsule by mouth daily. Active citalopram (CELEXA) 20 MG tabletIndication s:Other depression Take 1 tablet (20 mg total) by mouth daily. 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 90 tablet 3 5 Active Active Problems Problem Noted Date Diagnosed Date Depression 03/10/2023 03/10/2023 Assessment & Plan (05/27/2024 5:03 PM EST): Rx sent for SSRI until she is able to get into see her new PCP. 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 Has had declining dose requirement over the years. TSH was normal in November. Has not been taking full dose for almost 1 week as was running out of medication. Advised to resume rx, repeat labs in 6-8 weeks. Needs to hold biotin for 5-7 days prior & will then adjust rx as appropriate. To call/message via portal if hasn't heard from me with results within 1-2 weeks. If levels normal, would repeat labs q6-12 months, sooner prn symptoms of thyroid dysfunction or > 10-15# weight change, or as otherwise clinically indicated. Assessment & Plan (03/10/2023 4:43 PM EST): Reports good consistency taking rx appropriately. Has had declining dose requirement over the years. Last TSH was normal shortly after last dose adjustment. Discussed non-specific nature of symptoms of thyroid dysfunction. Discussed typical dose requirements, impact of age. Risks of excessive rx. Although some of her symptoms could certainly be related to thyroid dysfunction, they are a mix of typical hypo/hyper symptoms & if levels are normal, would advise looking for other potential causes & not attributing to thyroid. Will check labs & adjust rx as appropriate. To call/message via portal if hasn't heard from me with results within 1-2 weeks. If levels normal, would repeat labs q6-12 months, sooner prn symptoms of thyroid dysfunction or > 10-15# weight change, or as otherwise clinically indicated. Immunizations Immunization Administration Dates Next Due Td (adult) 5 Lf Tetanus Toxoid, PF, Adsorbed Tdap 09/25/2019,01/10/2012 Family History Medical History Relation Comments Colon cancer Father question of Prostate cancer Father Cancer Mother question of Gallbladder disease Mother cholecystect lorenza Hypertension Mother Relation Status Comments Father Mother Social History Tobacco Use Types Packs/Day Years [...] on file Sexual Orientation Not on file Last Filed Vital Signs Vital Sign Reading Time Taken Comments Blood Pressure 118/76 05/27/2024 1:32 PM EST Pulse 92 05/27/2024 1:32 PM EST Temperature 36.6 C (97.8 F) 03/10/2023 2:09 PM EST Respiratory Rate - - Oxygen Saturation 98% 05/27/2024 1:32 PM EST Inhaled Oxygen Concentration - - Weight 88.2 kg (194 lb 6.4 oz) 05/27/2024 1:32 P M EST Height 161.3 cm (5' 3.5 ) 05/27/2024 1:32 PM EST Body Mass Index 33.9 05/27/2024 1:32 PM EST Plan of Treatment Upcoming Encounters Date Type Department Care Team (Late st Contact Info) Description 03/23/2025 1:30 PM EST Office Visit [facility] [address] [place] [address] Trisha Perera, LICENSING ENGINEER [address] [facility], [address] [place] [address] 06/02/2025 2:00 PM EST Office Visit [facility] [address] [place] [address] [place] [address] Sara Esquivel MD [address] [place] [phone] [email or web address] Health Maintenance Due Date Last Done Comments DEPRESSION SCREENING 1958 SMOKING Hx and SMOKELESS TOBACCO SCREENING 1959 HEPATITIS C SCREENING 02/03/1964 PNEUMOCOCCAL VACCINES (50+ years) (1 of 2 - PCV) 1965 ZOSTER VACCINES (1 of 2) 02/03/1996 OSTEOPOROSIS SCREENING INITIAL (ONE-TIME) 2011 RSV VACCINE (1 - 1-dose 75+ series) 2021 INFLUENZA VACCINE (#1) 2024 TSH LEVEL 12/03/2024 12/04/2023, 03/10/2023 COVID-19 VACCINE ( season) 2024 02/13/2022, 07/19/2021, 02/05/2021, Additional history exists LIPID PANEL 03/10/2028 03/10/2023, 02/23/2015 Adult Td,Tdap Booster 09/24/2029 09/25/2019 , 01/25/2012, 01/10/2012 HEPATITIS A VACCINES Aged Out No long er eligible based on patient's age to complete this topic HIB VACCINES Aged Out No longer eligi ble based on patient's age to complete this topic MENINGOCOCCAL VACCINES (ACWY) Aged Out No longer eligible based on patient's age to complete this topic MENINGOCOCCAL VACCINES (B) Aged Out N o longer eligible based on patient's age to complete this topic Medical Devices Not on file Procedures Procedure Name Priority Date/Time Associated Diagnosis Comments TSH Routine 12/04/2023 8:41 AM EDT LIPID PANEL Routine 03/10/2023 2:59 PM EST 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 smoking, excerise, hormones, sex and age. CHOLESTEROL 313(H) 0 - 240 mg/dL [facility] TRIGLYCERIDES 122 30 - 160 mg/dL [facility] LDL 193(H) 50 - 129 mg/dL [facility] Comment: LDL levels in terms of risk for coronary heart disease: <100 mg/dL: Optimal 100-129 mg/dL: Near or above optimal 130-159 mg/dL: Borderline high 160-189 mg/dL: High >190 mg/dL: Very High CARDIAC RISK RATIO 3.3 3.3 - 4.4 [facility] [employer] Blood 03/10/2023 2:59 PM EST 03/10/2023 3:04 PM EST Sara Esquivel MD LAB BLOOD ORDERABLES F inal Result [address] [address] from Last 3 Months or Most Recently Relevant to Health Maintenance Insurance MEDICARE PART A & B [facility] [employer] MEDICARE SUPPLEMENT MEDICARE PART A & B [facility] [employer] MEDICARE SUPPLEMENT MEDICARE PART A & B Member Subscriber Plan / Payer (Ef fective 2011-Present) Name:Mar Ramírez Member ID:[id number] Relation to Subscriber:Self Name:Mar Ramírez Subscriber ID:[id number] Payer ID:[id number] Group ID:Not on file Type:Medicare Address: [employer] [address] [place] [id number] [place] [address] EXTENSION MEDICARE SUPPLEMENT MEDICARE PART A & B [facility] [employer] MEDICARE SUPPLEMENT MEDICARE PART A & B [employer] MEDICARE SUPPLEMENT MEDICARE PART A & B [employer] MEDICARE SUPPLEMENT MEDICARE PART A & B [facility] MEDICARE SUPPLEMENT MEDICARE PART A & B [facility] [employer] MEDICARE SUPPLEMENT MEDICARE PART A & B Member Subscriber Plan / Payer ( fective 2011-Present) Name:RamírezMar Member ID:[id number] Relation to Subscriber:Self Name:Mar Ramírez Subscriber ID:[id number] Payer ID:[id number] Group ID:Not on file Type:Medicare Address: [employer] [address] [facility] [employer] MEDICARE SUPPLEMENT Care Teams Mixing Tumbler Operator Relationship Specialty Start Date End Date Trisha Perera CNP [address] [place] [address], [address] [place] [address] [email or web address] PCP - General Nurse Practitioner 05/27/24 Additional Source Comments The information contained in this document represents components of the legal health record. It is not the complete legal health record.[facility]
--- OUTSIDE RECORDS SUMMARY | 2025-01-17 18:16 | XMS_ITS | Patient Health Record ---
Author Organization [facility] [place] Address [address] [place] [address] Care Team Providers Care Buyer Name Role Phone Alyse France Primary Care Provider Unava ilable Black, Jennifer Unavailable [phone] Allergies Allergen (clinical drug ingredient) Drug/Non Drug Allergy documented on EMR Reaction Allergy Type Onset Date Status Keflex abdominal pain, diarrhea Drug Allergy Active Novocain anxiety Drug Allergy Active oxycodone OxyCONTIN severe itching Drug Allergy Ac tive sulfa hives Drug Allergy Active adhesive tape swelling, turn red Drug Allergy Active latex raspy breathing Drug Allergy A ctive cortisone Cortisone racing heart Drug Allergy Acti ve morphine Morphine severe itching Drug Allergy Ac tive Reason For Referral No Information Medications Medication SIG (Take, Route, Frequency, Duration) Notes Start Date End Date Status Levothyroxine Sodium 100 MCG 1 tablet in the morning on an empty stomach Orally Once a day; Duration: 30 day(s) Active Fluticasone Propionate 50 MCG/ACT 1 spray in each nostril Nasally Once a day; Duration: 30 day(s) PRN Active Dicyclomine HCl 10 mg PRN Acti ve Citalopram Hydrobromide 20 MG 1 tablet Orally Once a day; Duration: 30 day(s) Active buPROPion HCl 100 MG 1 tablet Orally Three times a day; Duration: 30 day(s) Not-Taking Levsin Not-Taking CeleXA 20 MG 1 tablet Orally Once a day; Duration: 30 day(s) Not-Taking Custom Orthotics as directed 03/15/2021 Active Pulmicort 0.5 MG/2ML 1 ml Inhalation Twice a day 180 mcg Active Synthroid Not-Taking Xopenex HFA 45 MCG/ACT 2 puffs Inhalatio n every 6 hrs Not-Taking Zegerid 20-1100 MG 1 capsule on an empty stomach Orally Once a day; Duration: 30 day(s) Not-Taking Immunizations Vaccine Route Administration Date Status Comme nts COVID-19 Moderna Vaccine Unknown 01/15/2021 Administered 1st 06/05/20 2nd 07/03/20 Social History Tobacco Use: Social History Observation Description Date Details (start date - stop date) Former Smoker NA - 03/07/1986 Tobacco Use/Smoking Question Answer Notes Are you a: former smoker When did you stop smoking? 03/07/1986 Additional Findings: Tobacco Non-User Ex-cigaret te smoker Alcohol Screen Question Answer Notes Did you have a drink containing alcohol in the p ast year? No Points 0 Interpretation Negative Tobacco use other than smoking: Question Answer Notes Are you an other tobacco user? No Problems Problem Type SNOMED Code ICD Code Onset Dates Problem Status W/U Status Risk Notes Problem Acquired hammer toe of right foot (6919994677808 105) Hammer toe of right foot (M20.41) Active confirmed Problem Acquired hammer toe of left foot (3529071361859 103) Hammer toe of left foot (M20.42) Active confirmed Problem Pronation deformity of left foot (M21.6X2) Active confirmed Problem Pronation deformity of right foot (M21.6X1) Active confirmed Plan Of Treatment Pending Test Test Name Order Date X ray : Foot, left 3V 05/06/2011 Insurance Providers Payer Name Payer Address Payer Phone Subscriber Number Group Number Insured Name Patient Relationship to Insured Coverage Start Date Coverage End Date Medicare National Govt [employer] [address] [facility] [address] [id number] Mar Ramírez Self - patient is the insured [facility] [address] [place] [address] [id number] Mar Ramírez Self - patient is the insured Medical (General) History Medical History History ICD Code warts thyroid disorder sinus conditions sciatica reflux measles chicken pox back, hip, knee pain asthma osteoarthritis Broken bones Cataracts Macular degeneration Irritable bowel syndrome Diverticulosis Surgical History Surgery Date(Month/Year) left rotator cuff tear repair 2000 right rotator cuff tear repair 2002 right knee surgery 2012 left knee surgery 2014 Hospitalization History Reason Date(Month/Year)
--- OUTSIDE RECORDS SUMMARY | 2025-01-17 18:16 | XMS_ITS | Encounter Summary ---
Author Organization [facility] Address [address] [place] [address] Phone Care Team Providers Care Business Transformation Consultant Name Role Phone Alyse France PROPERTY CLAIMS MANAGER Primary Care Provi mara Trisha Perera CNP Primary Care Provider Encounter Details Date Type Department Care Team (Late Contact Info) Description 01/19/2024 Procedure Pass [facility], Ct Scan - [facility] [address] [place] [address] Social History Tobacco Use Types Packs/Day Years [...] Description 03/23/2025 1:30 PM EST Office Visit [facility] [address] [place] [address] Trisha Perera CNP [address] [facility], [address] [place] [address] 06/02/2025 2:00 PM EST Office Visit [facility] [address] [place] [address] Sara Esquivel MD [address] [facility] [address] [place] [address] documented as of this encounter Visit Diagnoses Not on filedocumented in this encounter Care Teams Business Transformation Consultant Relationship Specialty Start Date End Date Alyse France NP [address] [place] [address] PCP - General Nurse Practitioner 07/19/22 05/26/24 Trisha Perera CNP [address] [place] [address] 7 [place] [address] PCP - General Nurse Practitioner 05/27/24 documented as of this encounter Additional Source Comments The information contained in this document represents components of the legal health record. It is not the complete legal health record.[facility]
--- OUTSIDE RECORDS SUMMARY | 2025-01-17 18:16 | XMS_ITS | Encounter Summary ---
Author Organization [facility] Address [address] [facility] [address] [place] [address] Phone Care Team Providers Care Certified Diabetes Educator Name Role Phone Alyse France BRANCH EMPLOYMENT COORDINATOR Primary Care Provi mara Trisha Perera LONG LINES OPERATOR Primary Care Provider [phone] Encounter Details Date Type Department Care Team (Late st Contact Info) Description 10/24/2022 Ancillary Orders [address] [address] Cassandra Conn MD [address] [place] [address] Orthopedics & Sports Medicine, [place] [address] [email or web address] Hip pain, chronic, right Social History Tobacco Use Types Packs/Day Years [...] Description 03/23/2025 1:30 PM EST Office Visit [facility] [address] [place] [address] Trisha Perera CNP 234 [facility] 7 [place] [address] 06/02/2025 2:00 PM EST Office Visit [facility] [address] [place] [address] Sara Esquivel MD 22 [facility] [address] [place] [address] Pending Results Name Type Priority Associated Diagnoses Date /Time FL Guidance Needle Placement Non-Spine Imaging Routine Hip pain, chronic, right 10/29/2022 11:52 AM EDT Scheduled Orders Name Type Priority Associated Diagnoses Orde r Schedule FL Guidance Needle Placement Non-Spine Imaging Routine Hip pain, chronic, right 1 Occurrences starting 10/24/2022 until 01/24/2023 documented as of this encounter Visit Diagnoses Diagnosis Hip pain, chronic, right documented in this encounter Care Teams Certified Diabetes Educator Relationship Specialty Start Date End Date Alyse France NP [address] [place] [address] PCP - General Nurse Practitioner 07/19/22 05/26/24 Trisha Perera CNP [address] [facility] 7 [place] [address] PCP - General Nurse Practitioner 05/27/24 documented as of this encounter Additional Source Comments The information contained in this document represents components of the legal health record. It is not the complete legal health record.[facility]
--- OUTSIDE RECORDS SUMMARY | 2025-01-17 18:16 | XMS_ITS | Patient Health Record ---
Author Organization [facility] Address [address] [place] [address] Care Team Providers Care Dial Polisher Name Role Phone Gordon Huong Primary Care Provider Mook Jang Unavailable [phone] Allergies Allergen (clinical drug ingredient) Drug/Non Drug Allergy documented on EMR Reaction Allergy Type Onset Date Status Sulfa Unknown Drug Allergy Active Adhesive Bandages Unknown Drug Allergy Active seasonal (uncoded) Unknown Allergy A ctive Latex latex (uncoded) Unknown Allergy Acti ve Reason For Referral No Information Medications Medication SIG (Take, Route, Frequency, Duration) Notes Start Date End Date Status Dicyclomine HCl 10 MG 1-2 Orally QID prn abdominal bloating and cramps for 30 days 06/21/2016 Active Levothyroxine Sodium 100 MCG TAKE 1 TABL ET BY MOUTH EVERY DAY Oral Once a day Active Citalopram Hydrobromide 40 MG TAKE 1 TABLET BY MOUTH EVERY DAY Oral Once a day Active Naproxen 500 MG 1 tablet as needed Orally every 12 hrs/prn 06/21/2016 Active Pulmicort Flexhaler 180 MCG/ACT INHALE 1 PUFF BY MOUTH TWICE Inhalation QD Active Problems Problem Type SNOMED Code ICD Code Onset Dates Problem Status W/U Status Risk Notes Problem 032792553 Barretts esophag us without dysplasia (K22.70) Active confirmed Problem 167642266 Gastroesophageal reflux disease, esophagitis presence not specified (K21.9) Active confirmed Problem 72042941 Abdominal cramps (R10.9) Active confirmed Problem 23133429 Irritable bowel syndrome, unspecified type (K58.9) Active confirmed Plan Of Treatment No Information Insurance Providers Payer Name Payer Address Payer Phone Subscriber Number Group Number Insured Name Patient Relationship to Insured Coverage Start Date Coverage End Date MEDICARE OF [place] [address] [place] [id number] Self - patient is the insured [facility] INDEMNITY [address] [place] [id number] Self - patient is the insured Medical (General) History Medical History History ICD Code Colonoscopy 02-20-2009 and 01 08--no adenomas, hyperplastic polyps, internal hemorrhoids---biopsies negative for microscopic colitis Chris's disease--subsequent hypothyr oidism Denies VA,DM,CVA,renal disease Seasonal allergies-gets injections biwee kly Mild urinary incontinence Irritable bowel syndrome--negative duode nal biopsies in 2008 Asthma EGD 2008--tiny area of [place] tt's esophagus(no dysplasia), small to moderate-sized HH--- no esophagitis Anxiety Surgical History Surgery Date(Month/Year) Foot surgery Rotator cuff tear repair-bilateral Knee surgery-bilateral
--- OUTSIDE RECORDS SUMMARY | 2025-01-17 18:16 | XMS_ITS | Encounter Summary ---
Author Organization [facility] Address [address] [facility] [address] [place] [address] Phone Care Team Providers Care Repairer Welding Equipment Name Role Phone Alyse France PROSTHETIC AIDES TEACHER Primary Care Provi mara Trisha Perera CHAIRMAN & CHIEF EXECUTIVE OFFICER Primary Care Provider [phone] Encounter Details Date Type Department Care Team (Late Contact Info) Description 10/24/2022 Ancillary Orders [facility] [address] [place] [address] Cassandra Conn MD [address] [place] [address] Orthopedics & Sports Medicine, [place] [address] [email or web address] Social History Tobacco Use Types Packs/Day Years [...] Description 03/23/2025 1:30 PM EST Office Visit [facility] [address] [place] [address] Trisha Perera CNP 234 [facility] 7 [place] [address] 06/02/2025 2:00 PM EST Office Visit [facility] [address] [place] [address] Sara Esquivel MD 22 [facility] 3rd [place] [address] documented as of this encounter Visit Diagnoses Not on filedocumented in this encounter Care Teams Repairer Welding Equipment Relationship Specialty Start Date End Date Alyse France NP [address] [place] [address] PCP - General Nurse Practitioner 07/19/22 05/26/24 Trisha Perera CNP 234 [facility] 7 [place] [address] PCP - General Nurse Practitioner 05/27/24 documented as of this encounter Additional Source Comments The information contained in this document represents components of the legal health record. It is not the complete legal health record.[facility]
== END 2025-01-17 15:58 | disposition home or self-care (01) ==
LOC: HO.HMGAL 15:57
PROVIDERS: PCP Nurse Practitioner Family; Visit Provider Registered Nurse Emergency
DX: J30.89 Other allergic rhinitis (principal)
CPT/HCPCS: 95117; 95165

== ENCOUNTER 2025-01-31 15:09 | Outpatient (AMB) | payer MEDICARE, OTHER, SELFPAY ==
--- OUTSIDE RECORDS SUMMARY | 2025-01-31 19:22 | XMS_ITS | Encounter Summary ---
Author Organization [facility] Address [address] [facility] [address] [place] [address] Phone Care Team Providers Care Clinical Biostatistician Name Role Phone Alyse France ACID CHANGER Primary Care Provi mara Trisha Perera SATELLITE TECHNICIAN Primary Care Provider Encounter Details Date Type Department Care Team (Late Contact Info) Description 12/03/2023 Procedure Pass [facility] Endoscopy Admitting Dept Virtual Department [address] [place] [address] Social History Tobacco Use Types Packs/Day Years [...] Department Care Team (Late Contact Info) Description 02/11/2025 4:45 PM EDT Office Visit [facility] [address] [place] [address] Vickey Lim, DO [address] [facility], [address] [place] [address] 03/23/2025 1:30 PM EST Office Visit [facility] [address] [place] [address] Trisha Perera CNP 234 [facility] 7 [place] [address] 06/02/2025 2:00 PM EST Office Visit [facility] [address] [place] [address] Sara Esquivel MD [address] [address] documented as of this encounter Visit Diagnoses Not on filedocumented in this encounter Care Teams Clinical Biostatistician Relationship Specialty Start Date End Date Alyse France NP [address] [place] [address] PCP - General Nurse Practitioner 07/19/22 05/26/24 Trisha Perera CNP 234 [facility] 7 [place] [address] PCP - General Nurse Practitioner 05/27/24 documented as of this encounter Additional Source Comments The information contained in this document represents components of the legal health record. It is not the complete legal health record.[facility]
--- OUTSIDE RECORDS SUMMARY | 2025-01-31 19:22 | XMS_ITS | Encounter Summary ---
Author Organization [facility] Address [address] [place] [address] Phone Care Team Providers Care Turbine Mechanic Name Role Phone Alyse France PHARMACY INTAKE TECHNICIAN Primary Care Provi mara Trisha Perera MILITARY EQUIPMENT SPECIALIST Primary Care Provider [phone] Reason for Referral * MRI/CAT Scan - Closed Specialty Diagnoses / Procedures Referred By Valarie vo Referred To Contact Radiology Diagnoses Abdominal pain, unspecified abdominal location Procedures CT Abdomen/Pelvis Shelley Thrasher PA 10 [place] [address] Phone: tel: fax: Referral ID Status Reason Start Date Expiration Date Visits Re quested Visits Authorized [id number] Closed 01/19/2024 01/18/2025 1 1 Encounter Details Date Type Department Care Team (Latest Contact Info) Description 01/19/2024 Transcribe Orders Virtual Department 30 [place] [address] Shelley Thrasher PA 10 [place] [address] Abdominal pain, unspecified abdominal location (Primary Dx) [...] Care Team (Late st Contact Info) Description 02/11/2025 4:45 PM EDT Office Visit [facility] [address] [place] [address] Vickey Lim DO 234 [facility], [facility] 7 [place] [address] 03/23/2025 1:30 PM EST Office Visit [facility] [address] [place] [address] Darby Pereraghan, MILITARY EQUIPMENT SPECIALIST 234 [facility], [facility] 7 [place] [address] 06/02/2025 2:00 PM EST Office Visit [facility] [address] [place] [address] Sara Esquivel MD [address] [place] [address] documented as of this encounter Results * [...] clinician's provided indication for this examination in [place]: Outside Radiology Order; abdomen pain. TECHNIQUE: Multidetector-row [...] curvature convexity to the right. Procedure Note Tee Morton MD - 02/14/2024 CT ABDOMEN/PELVIS WITH AND WITHOUT CONTRAST Referring clinician's provided indication for this examination in [place]:Outside Radiology Order; abdomen pain. TECHNIQUE: Multidetector-row CT [...] 3. Renal cortical cysts. 4. Fibroid uterus. Shelley ROSADO IMG CT ABD/PELVIS Final Res ult documented in this encounter Visit Diagnoses Diagnosis Abdominal pain, unspecified abdominal location- Primary Abdominal pain, unspecified abdominal location documented in this encounter Care Teams Turbine Mechanic Relationship Specialty Start Date End Date Alyse France NP 95 [place] [address] PCP - General Nurse Practitioner 07/19/22 05/26/24 Trisha Perera CNP [address] [place] [address], [address] [place] [address] [email or web address] PCP - General Nurse Practitioner 05/27/24 documented as of this encounter Additional Source Comments The information contained in this document represents components of the legal health record. It is not the complete legal health record.[facility]
--- OUTSIDE RECORDS SUMMARY | 2025-01-31 19:22 | XMS_ITS | Encounter Summary ---
Author Organization [facility] Address [address] [place] [address] Phone Care Team Providers Care Electrician Name Role Phone Alyse France POULTRY RAISER Primary Care Provi mara Trisha Perera DESIGN ENGINEER MARINE EQUIPMENT Primary Care Provider Encounter Details Date Type Department Care Team (Latest Contact Info) Description 10/08/2023 Transcribe Orders Virtual Department 30 [place] [address] Robinson Elizondo MD [address] [place] [phone] Hiatal hernia (Primary Dx); Early satiety Social [...] Description 02/11/2025 4:45 PM EDT Office Visit [facility] 234 [place] [address] Vickey Lim DO 234 [facility], [address] [place] [address] 03/23/2025 1:30 PM EST Office Visit [facility] 234 [place] [address] Trisha Perera CNP 234 [facility], [address] [place], [place] [address] 06/02/2025 2:00 PM EST Office Visit [facility] [address] [place] [address] Sara Esquivel MD [address] [address] documented as of this encounter Results * [...] originally createdby Flynn Peres. Robinson Elizondo MD [facility] Final Result documented in this encounter Visit Diagnoses Diagnosis Hiatal hernia- Primary Diaphragmatic hernia without mention of obstruction or gangrene Early satiety Hiatal hernia Diaphragmatic hernia without mention of obstruction or gangrene Early satiety documented in this encounter Care Teams Electrician Relationship Specialty Start Date End Date Alyse France NP 95 [place] [address] PCP - General Nurse Practitioner 07/19/22 05/26/24 Trisha Perera CNP [address] [place] [address] [address] [place] [address] [email or web address] PCP - General Nurse Practitioner 05/27/24 documented as of this encounter Additional Source Comments The information contained in this document represents components of the legal health record. It is not the complete legal health record.[facility]
--- OUTSIDE RECORDS SUMMARY | 2025-01-31 19:23 | XMS_ITS | Encounter Summary ---
Author Organization [facility] Address [address] [facility] [address] [place] [address] Phone Care Team Providers Care Data Support Specialist Name Role Phone Alyse rFance ASSEMBLER MOTOR VEHICLE Primary Care Provi mara Trisha Perera JACQUARD PLATE MAKER Primary Care Provider [phone] Encounter Details Date Type Department Care Team (Late st Contact Info) Description 10/24/2022 Ancillary Orders [address] [address] Cassandra Conn MD [address] [place] [address] Orthopedics & Sports Medicine, [place] [address] [email or web address] Hip pain, chronic, right Social [...] Description 02/11/2025 4:45 PM EDT Office Visit [facility] [address] [place] [address] Vickey Lim DO 234 [facility], [facility] 7 [place] [address] 03/23/2025 1:30 PM EST Office Visit [facility] 234 [place] [address] Trisha Perera CNP 234 [facility] 7 [place] [address] 06/02/2025 2:00 PM EST Office Visit [facility] [address] [place] [address] Sara Esquivel MD [address] [place] [address] [email or web address] [email or web address] Results Name Type Priority Associated Diagnoses [...] right documented in this encounter Care Teams Data Support Specialist Relationship Specialty Start Date End Date Alyse France NP [address] [place] [address] PCP - General Nurse Practitioner 07/19/22 05/26/24 Trisha Perera CNP 234 [facility] 7 [place] [address] [email or web address] PCP - General Nurse Practitioner 05/27/24 documented as of this encounter Additional Source Comments The information contained in this document represents components of the legal health record. It is not the complete legal health record.[facility]
--- OUTSIDE RECORDS SUMMARY | 2025-01-31 19:23 | XMS_ITS | Encounter Summary ---
Author Organization [facility] Address [address] [facility] [address] [place] [address] Phone Care Team Providers Care Packaging Sales Representative Name Role Phone Trisha Perera GRAIN MERCHANDISER Primary Care Provider Encounter Details Date Type Department Care Team (Late st Contact Info) Description 01/21/2025 Orders Only [facility] 234 [place] [address] Provider, MD Mariusz [address] [place], [place] [id number] Social History Tobacco Use Types Packs/Day Years [...] Description 02/11/2025 4:45 PM EDT Office Visit [facility] 234 [place] [address] Vickey Lim DO 234 [facility], [address] [place] [address] 03/23/2025 1:30 PM EST Office Visit [facility] 234 [facility] [place] [address] Trisha Perera ESTER 234 [facility], [address] [place] [address] 06/02/2025 2:00 PM EST Office Visit [facility] 22 [place] [address] Sara Esquivel MD [address] [address] documented as of this encounter Procedures Procedure Name Priority Date/Time Associated Diagnosis Comments MAMMOGRAPHY Routine 01/21/2025 8:24 AM EDT documented in this encounter Results * MAMMOGRAPHY FOR RESULT ENTRY ONLY (01/21/2025 8:24 AM EDT) Alyse France ARCHEOLOGIST HEALTH MAINTENANCE Final Result documented in this encounter Visit Diagnoses Not on filedocumented in this encounter Care Teams Packaging Sales Representative Relationship Specialty Start Date End Date Trisha PereraESTER 234 [facility], [facility] 7 [place] [address] PCP - General Nurse Practitioner 05/27/24 documented as of this encounter Additional Source Comments The information contained in this document represents components of the legal health record. It is not the complete legal health record.[facility]
--- OUTSIDE RECORDS SUMMARY | 2025-01-31 19:23 | XMS_ITS | Patient Health Record ---
Author Organization [facility] Address [address] [place] [address] Care Team Providers Care Ux Developer Designer Name Role Phone Alyse France Primary Care Provider Unava ilable Black, Jennifer Unavailable [phone] Allergies Allergen (clinical drug ingredient) Drug/Non Drug [...] Problem Acquired hammer toe of right foot (4110881984605 105) Hammer toe of right foot (M20.41) Active confirmed Problem Acquired hammer toe of left foot (1119970281585 103) Hammer toe of left foot (M20.42) [...] Date Coverage End Date Medicare National Govt [employer] [address] [facility] [place] [address] [id number] Mar Ramírez Self - patient is the insured [facility] ([facility]) [address] [place] [address] [phone] [id number] Mar Ramírez Self - patient is [...]
--- OUTSIDE RECORDS SUMMARY | 2025-01-31 19:23 | XMS_ITS | Encounter Summary ---
Author Organization [facility] Address [address] [place] [address] Phone Care Team Providers Care Deputy Director Of Nursing Name Role Phone Trisha Perera ESTER Primary Care Provider Encounter Details Date Type Department Care Team ([facility] st Contact Info) Description 01/31/2025 Telephone [facility] [address] [place] [address] Josephine Bautista CMA 232[address] [place] [address] Social History Tobacco Use Types Packs/Day Years [...] on file documented as of this encounter Progress Notes * Josephine Bautista CMA - 01/31/2025 9:10 AM EDT Order faxed to [facility] for diagnostic left mammogram and left breast US. Vickey Lim signed the order and is requesting we have her come in for an office visit with him in 2 weeks for follow up on this. The pt will still be seeing Trisha Perera as her PCP but Vickey would like her seen sooner for this. To PSR team to please schedule, thank you! documented in this encounter Plan of Treatment Upcoming Encounters Date Type Department Care Team (Late st Contact Info) Description 02/11/2025 4:45 PM EDT Office Visit [facility] 234 [place] [address] Vickey Lim DO [address] [address] 03/23/2025 1:30 PM EST Office Visit [facility] 234 [place] [address] Trisha Perera CNP [address] [address] 06/02/2025 2:00 PM EST Office Visit [facility] 22 [place] [address] Sara Esquivel MD [address] [address] documented as of this encounter Visit Diagnoses Not on filedocumented in this encounter Care Teams Deputy Director Of Nursing Relationship Specialty Start Date End Date Trisha Perera CNP [address] [address] PCP - General Nurse Practitioner 05/27/24 documented as of this encounter Additional Source Comments The information contained in this document represents components of the legal health record. It is not the complete legal health record.[facility]
--- OUTSIDE RECORDS SUMMARY | 2025-01-31 19:23 | XMS_ITS | Patient Health Record ---
Author Organization [facility] Address [address] [place] [address] Care Team Providers Care Custom Wood Stair Builder Name Role Phone Evan Huong Primary Care Provider Mook Jang Unavailable [phone] Allergies Allergen (clinical drug ingredient) Drug/Non Drug [...] 1-2 Orally QID prn abdominal bloating and cramps; Duration: 30 days 06/21/2016 Active Levothyroxine Sodium 100 [...] Problem Status W/U Status Risk Notes Problem Fitzgerald's esophagus (343496820) Barretts esophagus without dysplasia (K22.70) Active confirmed Problem Gastroesophageal reflux disease (717632570) Gastroesophageal reflux disease, esophagitis presence not specified (K21.9) Active confirmed Problem Abdominal pain (23918910) Abdominal cramps (R10.9) Active confirmed Problem Irritable bowel syndrome (31453161) Irritable bowel syndrome, unspecified type (K58.9) Active confirmed Plan Of Treatment No Information Insurance Providers Payer Name Payer Address Payer Phone Subscriber Number Group Number Insured Name Patient Relationship to Insured Coverage Start Date Coverage End Date MEDICARE OF [place] [address] [place] [address] [id number] Self - patient is the insured [facility] [address] [place] [id number] Self - patient is the insured Medical (General) History Medical History History ICD Code Colonoscopy 02-20-2009 and 01 08--no adenomas, hyperplastic polyps, internal hemorrhoids---biopsies negative for microscopic colitis Chris's disease--subsequent hypothyr oidism Denies [place],DM,CVA,renal disease Seasonal allergies-gets injections biwee kly Mild urinary incontinence Irritable bowel syndrome--negative duode nal biopsies in 2008 Asthma EGD 2008--tiny area of Pavo tt's esophagus(no dysplasia), small to moderate-sized HH--- no esophagitis Anxiety Surgical History Surgery Date(Month/Year) Foot surgery Rotator cuff tear repair-bilateral Knee surgery-bilateral
--- OUTSIDE RECORDS SUMMARY | 2025-01-31 19:23 | XMS_ITS | Encounter Summary ---
Author Organization [facility] Address [address] [facility] [address] [place] [address] Phone Care Team Providers Care Warehouse Lead Name Role Phone Alyse France CERTIFIED FRAUD EXAMINER Primary Care Provi mara Trisha Perera GLASS BULB MACHINE ADJUSTER Primary Care Provider [phone] Encounter Details Date Type Department Care Team (Late Contact Info) Description 10/24/2022 Ancillary Orders [facility] [address] [place] [address] Cassandra Conn MD [address] [place] [address] Orthopedics & Sports Medicine, [place] [address] [email or web address] Social History Tobacco Use Types Packs/Day Years [...] Description 02/11/2025 4:45 PM EDT Office Visit [facility] 234 [place] [address] Vickey Lim DO 234 [facility] 7 [place] [address] 03/23/2025 1:30 PM EST Office Visit [facility] 234 [place] [address] Trisha Perera CNP 234 [facility] 7 [place] [address] 06/02/2025 2:00 PM EST Office Visit [facility] [address] [place] [address] Sara Esquivel MD [address] [address] documented as of this encounter Visit Diagnoses Not on filedocumented in this encounter Care Teams Warehouse Lead Relationship Specialty Start Date End Date Alyse France NP [address] [place] [address] PCP - General Nurse Practitioner 07/19/22 05/26/24 Trisha Perera CNP [address] [place] [address] PCP - General Nurse Practitioner 05/27/24 documented as of this encounter Additional Source Comments The information contained in this document represents components of the legal health record. It is not the complete legal health record.[facility]
--- OUTSIDE RECORDS SUMMARY | 2025-01-31 19:23 | XMS_ITS | Clinical Summary ---
Author Organization [facility] Address [address] [facility] [address] [place] [address] Phone Care Team Providers Care Automatic Transmission Mechanic Name Role Phone Trisha Perera ESTER Primary [...] weight change, or as otherwise clinically indicated. Encounters Date Type Department Care Team Description 01/31/2025 Telephone [facility] [address] [place] [address] Josephine Bautista CMA 01/21/2025 Orders Only [facility] [address] [place] [address] Provider, MD Mariusz from Last 3 Months Immunizations Immunization Administration Dates Next Due Td [...] Description 02/11/2025 4:45 PM EDT Office Visit [facility] 234 [place] [address] Vickey Lim DO 234 [facility], [address] [place] [address] 03/23/2025 1:30 PM EST Office Visit [facility] [address] [place], [place] [address] Trisha Perera, ESTER 234 [facility], [facility] 7 [place], [place] [address] 06/02/2025 2:00 PM EST Office Visit [facility] [address] [place] [address] [place] [address] Sara Esquivel MD [address] 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 smoking, excerise, hormones, sex and age. CHOLESTEROL 313(H) 0 - 240 mg/dL [facility] TRIGLYCERIDES 122 30 - 160 mg/dL [facility] LDL 193(H) 50 - 129 mg/dL [facility] Comment: LDL levels in terms of risk for coronary heart disease: <100 mg/dL: Optimal 100-129 mg/dL: Near or above optimal 130-159 mg/dL: Borderline high 160-189 mg/dL: High >190 mg/dL: Very High CARDIAC RISK RATIO 3.3 3.3 - 4.4 C [facility] Blood 03/10/2023 2:59 PM EST 03/10/2023 3:04 PM EST Sara Esquivel MD LAB BLOOD ORDERABLES F inal Result [facility] [address] [place] [address] from Last 3 Months or Most Recently Relevant to Health Maintenance Insurance MEDICARE PART A & B [facility] MEDICARE SUPPLEMENT MEDICARE PART A & B [employer] MEDICARE SUPPLEMENT MEDICARE PART A & B Member Subscriber Plan / Payer ( fective 2011-Present) Name:Mar Ramírez Member ID:[id number] Relation to Subscriber:Self Name:Mar Ramírez Subscriber ID:[id number] Payer ID:[id number] Group ID:Not on file Type:Medicare Address: [employer] [address] [employer] MEDICARE SUPPLEMENT MEDICARE PART A & B [employer] MEDICARE SUPPLEMENT MEDICARE PART A & B [employer] MEDICARE SUPPLEMENT MEDICARE PART A & B [employer] MEDICARE SUPPLEMENT MEDICARE PART A & B [employer] MEDICARE SUPPLEMENT MEDICARE PART A & B [facility] [employer] MEDICARE SUPPLEMENT MEDICARE PART A & B [facility] [employer] MEDICARE SUPPLEMENT Care Teams Automatic Transmission Mechanic Relationship Specialty Start Date End Date Trisha Perera CNP [address] [place] [address], [address] [place] [address] [email or web address] PCP - General Nurse Practitioner 05/27/24 Additional Source Comments The information contained in this document represents components of the legal health record. It is not the complete legal health record.[facility]
--- OUTSIDE RECORDS SUMMARY | 2025-01-31 19:23 | XMS_ITS | Encounter Summary ---
Author Organization [facility] Address [address] [place] [address] Phone Care Team Providers Care Software Specialist Name Role Phone Alyse France TANKMAN Primary Care Provi mara Trisha Perera YARN PACKER Primary Care Provider [phone] Encounter Details Date Type Department Care Team (Late Contact Info) Description 01/19/2024 Procedure Pass [facility], Ct Scan - [facility] 30 [place] [address] Social History Tobacco Use Types Packs/Day Years [...] Description 02/11/2025 4:45 PM EDT Office Visit [facility] 234 [place] [address] Vickey Lim, DO 234 [facility], [address] [place] [address] 03/23/2025 1:30 PM EST Office Visit [facility] [address] [place] [address] Trisha Perera CNP 234 [facility] 7 [place] [address] 06/02/2025 2:00 PM EST Office Visit [facility] 22 [place] [address] Sara Esquivel MD [address] [address] documented as of this encounter Visit Diagnoses Not on filedocumented in this encounter Care Teams Software Specialist Relationship Specialty Start Date End Date Alyse France NP 95 [place] [address] PCP - General Nurse Practitioner 07/19/22 05/26/24 Trisha Perera CNP 234 [facility] 7 [place] [address] PCP - General Nurse Practitioner 05/27/24 documented as of this encounter Additional Source Comments The information contained in this document represents components of the legal health record. It is not the complete legal health record.[facility]
== END 2025-01-31 15:10 | disposition home or self-care (01) ==
LOC: HO.HMGAL 15:09
PROVIDERS: PCP Nurse Practitioner Family; Visit Provider Registered Nurse Emergency
DX: J30.89 Other allergic rhinitis (principal)
CPT/HCPCS: 95117; 95165

== ENCOUNTER 2025-02-14 14:24 | Outpatient (AMB) | payer MEDICARE, OTHER, SELFPAY | END 2025-02-14 14:24 | disposition home or self-care (01) | LOC: HO.HMGAL 14:24 | PROVIDERS: PCP Nurse Practitioner Family; Visit Provider Registered Nurse Emergency | DX: J30.89 Other allergic rhinitis (principal) | CPT/HCPCS: 95117; 95165 ==

== ENCOUNTER 2025-03-07 15:31 | Outpatient (AMB) | payer MEDICARE, OTHER, SELFPAY ==
--- OUTSIDE RECORDS SUMMARY | 2025-03-07 20:05 | XMS_ITS | Encounter Summary ---
Author Organization [facility] Address [address] [place] [address] Phone Care Team Providers Care Auditing Manager Name Role Phone Alyse France PEANUT GRADER Primary Care Provi mara Trisha Perera HEAD OF DESIGN Primary Care Provider [phone] Reason for Referral * MRI/CAT Scan - Closed Specialty Diagnoses / Procedures Referred By Valarie vo Referred To Contact Radiology Diagnoses Abdominal pain, unspecified abdominal location Procedures CT Abdomen/Pelvis Shelley Thrasher PA 10 [place] [address] Phone: tel: fax: Referral ID Status Reason Start Date Expiration Date Visits Re quested Visits Authorized [id number] Closed 01/19/2024 01/18/2025 1 1 Encounter Details Date Type Department Care Team (Latest Contact Info) Description 01/19/2024 Transcribe Orders Virtual Department 30 [place] [address] Shelley Thrasher PA 10 [place] [address] Abdominal pain, unspecified abdominal location (Primary Dx) [...] Description 03/23/2025 1:30 PM EST Office Visit [facility] 234 [place] [address] Trisha Perera CNP 234 [facility], [address] [place] [address] 06/02/2025 2:00 PM EST Office Visit [facility] 22 [place] [address] Sara Esquivel MD 22 [facility] 3rd [place] [address] documented as of this encounter Results * [...] location documented in this encounter Care Teams Auditing Manager Relationship Specialty Start Date End Date Alyse France NP [address] [place] [address] PCP - General Nurse Practitioner 07/19/22 05/26/24 Trisha Perera CNP [address] [place] [address], [address] [place] [address] [email or web address] PCP - General Nurse Practitioner 05/27/24 documented as of this encounter Additional Source Comments The information contained in this document represents components of the legal health record. It is not the complete legal health record.[facility]
--- OUTSIDE RECORDS SUMMARY | 2025-03-07 20:05 | XMS_ITS | Encounter Summary ---
Author Organization [facility] Address [address] [place] [address] Phone Care Team Providers Care Accessibility Lift Technician Name Role Phone Alyse France DINING SERVICE SUPERVISOR Primary Care Provi mara Trisha Perera CNP Primary Care Provider Encounter Details Date Type Department Care Team (Late Contact Info) Description 01/19/2024 Procedure Pass [facility], [facility] Scan - [facility] 30 [place] [address] Social History Tobacco Use Types Packs/Day Years [...] Description 03/23/2025 1:30 PM EST Office Visit [facility] 234 [place] [address] Trisha Perera CNP 234 [facility], [address] [place] [address] 06/02/2025 2:00 PM EST Office Visit [facility] 22 [place] [address] Sara Esquivel MD 22 [facility] 3rd [place] [address] documented as of this encounter Visit Diagnoses Not on filedocumented in this encounter Care Teams Accessibility Lift Technician Relationship Specialty Start Date End Date Alyse France NP 95 [place] [address] PCP - General Nurse Practitioner 07/19/22 05/26/24 Trisha Perera CNP [address] [place] [address] 7 [place] [address] PCP - General Nurse Practitioner 05/27/24 documented as of this encounter Additional Source Comments The information contained in this document represents components of the legal health record. It is not the complete legal health record.[facility]
--- OUTSIDE RECORDS SUMMARY | 2025-03-07 20:05 | XMS_ITS | Clinical Summary ---
Author Organization [facility] Address [address] [facility] [address] [place] [address] Phone Care Team Providers Care Electric Motor Repairman Name Role Phone Trisha Perera ESTER Primary Care Provider [phone] Allergies Active Allergy Reactions Criticality Noted Date [...] Encounters Date Type Department Care Team Description 02/14/2025 Orders Only [facility] [address] [place] [address] Mariusz Frank MD 01/31/2025 Telephone [facility] [address] [place] [address] Josephine Bautista CMA 01/21/2025 Orders Only [facility] [address] [place] [address] ProviderMariusz MD from Last 3 Months Immunizations Immunization Administration [...] 03/23/2025 1:30 PM EST Office Visit [facility] 234 [place] [address] Trisha Perera CNP 234 [facility], [address] [place] [address] 06/02/2025 2:00 PM EST Office Visit [facility] 22 [place] [address] Sara Esquivel MD 22 [facility] 3rd [place] [address] Health Maintenance Due Date Last Done Comments DEPRESSION SCREENING 1958 SMOKING Hx and SMOKELESS TOBACCO SCREENING 1959 HEPATITIS C SCREENING 02/03/1964 PNEUMOCOCCAL VACCINES (50+ years) (1 of 2 - PCV) 1965 ZOSTER VACCINES (1 of 2) 02/03/1996 OSTEOPOROSIS SCREENING INITIAL (ONE-TIME) 2011 RSV VACCINE (1 - 1-dose 75+ series) 2021 INFLUENZA VACCINE (#1) 2024 TSH LEVEL 12/03/2024 12/04/2023, 03/10/2023 COVID-19 VACCINE (2024- season) 2024 02/13/2022, 07/19/2021, 02/05/2021, Additional history [...] Priority Date/Time Associated Diagnosis Comments MAMMOGRAPHY Routine 02/14/2025 11:38 AM EST HM MAMMOGRAPHY Routine 01/21/2025 8:24 AM EDT THYROID STIMULATING HORMONE (TSH) Routine 12/04/2023 8:41 AM EDT LIPID PANEL Routine 03/10/2023 2:59 PM EST 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 Last 3 Months or Most Recently Relevant to Health Maintenance Results * MAMMOGRAPHY FOR RESULT ENTRY ONLY (02/14/2025 11:38 AM EST) Historical Provider HEALTH MAINTENANCE Final Result * HM MAMMOGRAPHY FOR RESULT ENTRY ONLY (01/21/2025 8:24 AM EDT) Alyse France NP HEALTH MAINTENANCE Final Result * TSH (12/04/2023 8:41 AM EDT) Historical Provider LAB BLOOD BKR ORDERABLES Final Result * (ABNORMAL) Lipid panel (03/10/2023 2:59 PM EST) HDL 96 mg/dL [facility] Comment: Interpretation <40 mg/dL: Low HDL cholesterol (major risk factor for CHD) Greater than or equal to 60 mg/dL: High HDL cholesterol ( negative risk factor for CHD) HDL - cholesterol is affected by a number of factors, e.g. smoking, excerise, hormones, sex and age. CHOLESTEROL 313(H) 0 - 240 mg/dL [facility] TRIGLYCERIDES 122 30 - 160 mg/dL [facility] LDL 193(H) 50 - 129 mg/dL [facility] Comment: LDL levels in terms of risk for coronary heart disease: <100 mg/dL: Optimal 100-129 mg/dL: Near or above optimal 130-159 mg/dL: Borderline high 160-189 mg/dL: High >190 mg/dL: Very High CARDIAC RISK RATIO 3.3 3.3 - 4.4 C [facility] Blood 03/10/2023 2:59 PM EST 03/10/2023 3:04 PM EST us Sara Esquivel MD LAB BLOOD BKR ORDERABL ES Final Result [address] [address] from Last 3 Months or Most Recently Relevant to Health Maintenance Insurance MEDICARE PART A & B [facility] MEDICARE SUPPLEMENT MEDICARE PART A & B [employer] MEDICARE SUPPLEMENT MEDICARE PART A & [facility] EXTENSION MEDICARE SUPPLEMENT MEDICARE PART A & B [employer] MEDICARE SUPPLEMENT MEDICARE PART A & B [employer] MEDICARE SUPPLEMENT MEDICARE PART A & B [facility] EXTENSION MEDICARE SUPPLEMENT MEDICARE PART A & B [facility] EX[employer]ION MEDICARE SUPPLEMENT MEDICARE PART A & B Member Subscriber Plan / Payer ( fective 2011-Present) Name:Mar Ramírez Member ID:[id number] Relation to Subscriber:Self Name:RamírezMar Subscriber ID:[id number] Payer ID:[id number] Group ID:Not on file Type:Medicare Address: [employer] [address] [place] [id number] [facility] EXTENSION MEDICARE SUPPLEMENT MEDICARE PART A & B [facility] [employer]ION MEDICARE SUPPLEMENT Care Teams Electric Motor Repairman Relationship Specialty Start Date End Date Trisha Perera CNP [address] [place] [address] [address] [place] [address] [email or web address] PCP - General Nurse Practitioner 05/27/24 Additional Source Comments The information contained in this document represents components of the legal health record. It is not the complete legal health record.[facility]
--- OUTSIDE RECORDS SUMMARY | 2025-03-07 20:05 | XMS_ITS | Encounter Summary ---
Author Organization [facility] Address [address] [facility] [address] [place] [address] Phone Care Team Providers Care Fly Fishing Guide Name Role Phone Alyse France VERIFYING MACHINE OPERATOR Primary Care Provi mara Trisha Perera SUPERVISOR LOOPING Primary Care Provider [phone] Encounter Details Date Type Department Care Team (Late Contact Info) Description 10/24/2022 Ancillary Orders [facility] [address] [place] [address] Cassandra Conn MD [address] [place] [address] Orthopedics & Sports Medicine, [facility] [place] [address] [email or web address] Social History Tobacco Use Types Packs/Day Years [...] 03/23/2025 1:30 PM EST Office Visit [facility] 234 [place] [address] Trisha Perera CNP 234 [facility] 7 [place] [address] 06/02/2025 2:00 PM EST Office Visit [facility] 22 [place] [address] Sara Esquivel MD 22 [facility] 3rd [place] [address] documented as of this encounter Visit Diagnoses Not on filedocumented in this encounter Care Teams Fly Fishing Guide Relationship Specialty Start Date End Date Alyse France NP [address] [place] [address] PCP - General Nurse Practitioner 07/19/22 05/26/24 Trisha Perera CNP 234 [facility] 7 [place] [address] PCP - General Nurse Practitioner 05/27/24 documented as of this encounter Additional Source Comments The information contained in this document represents components of the legal health record. It is not the complete legal health record.[facility]
--- OUTSIDE RECORDS SUMMARY | 2025-03-07 20:05 | XMS_ITS | Encounter Summary ---
Author Organization [facility] Address [address] [place] [address] Phone Care Team Providers Care Plumber Cub Name Role Phone Trisha Perera ESTER Primary Care Provider Encounter Details Date Type Department Care Team ([facility] st Contact Info) Description 01/31/[id number] [facility] [address] [place] [address] Josephine Bautista CMA [address] [place] [address] Social History Tobacco Use Types Packs/Day Years [...] 01/31/2025 9:10 AM EDT Order faxed to [facility] for diagnostic left mammogram and left breast [...] Description 03/23/2025 1:30 PM EST Office Visit [facility] 234 [place] [address] Trihsa Perera CNP [address] [address] 06/02/2025 2:00 PM EST Office Visit [facility] [address] [place] [address] Sara Esquivel MD [address] [address] documented as of this encounter Visit Diagnoses Not on filedocumented in this encounter Care Teams Plumber Cub Relationship Specialty Start Date End Date Trisha Perera CNP 234 [facility] 7 [place] [address] PCP - General Nurse Practitioner 05/27/24 documented as of this encounter Additional Source Comments The information contained in this document represents components of the legal health record. It is not the complete legal health record.[facility]
--- OUTSIDE RECORDS SUMMARY | 2025-03-07 20:05 | XMS_ITS | Encounter Summary ---
Author Organization [facility] Address [address] [place] [address] Phone Care Team Providers Care Equestrian Trainer Name Role Phone Alyse France CAR ATTENDANT Primary Care Provi mara Trisha Perera SPARE HAND Primary Care Provider [phone] Encounter Details Date Type Department Care Team (Latest Contact Info) Description 10/08/2023 Transcribe Orders Virtual Department 30 [place] [address] Robinson Elizondo MD [address] [place] [phone] Hiatal hernia (Primary Dx); Early satiety Social [...] Description 03/23/2025 1:30 PM EST Office Visit [facility] 234 [place] [address] Trisha Perera CNP 234 [facility], [address] [place] [address] 06/02/2025 2:00 PM EST Office Visit [facility] [address] [place] [address] Sara Esquivel MD 22 [facility] 3rd [place] [address] [email or web address] documented as of this encounter Results * [...] originally createdby Flynn Peres. Robinson Elizondo MD [facility] Final Result documented in this encounter Visit Diagnoses Diagnosis Hiatal hernia- Primary Diaphragmatic hernia without mention of obstruction or gangrene Early satiety Hiatal hernia Diaphragmatic hernia without mention of obstruction or gangrene Early satiety documented in this encounter Care Teams Equestrian Trainer Relationship Specialty Start Date End Date Alyse France NP [address] [place] [address] PCP - General Nurse Practitioner 07/19/22 05/26/24 Trisha Perera CNP [address] [place] [address], [address] [place] [address] ([email or web address]) [email or web address] PCP - General Nurse Practitioner 05/27/24 documented as of this encounter Additional Source Comments The information contained in this document represents components of the legal health record. It is not the complete legal health record.[facility]
--- OUTSIDE RECORDS SUMMARY | 2025-03-07 20:05 | XMS_ITS | Encounter Summary ---
Author Organization [facility] Address [address] [place] [address] Phone Care Team Providers Care Manager Acquisition Name Role Phone Alyse France SERVICER COIN MACHINES Primary Care Provi mara Trisha Perera COMMISSIONING SPECIALIST Primary Care Provider [phone] Encounter Details Date Type Department Care Team (Late st Contact Info) Description 10/24/2022 Ancillary Orders [address] [address] Cassandra Conn MD [address] [place] [address] Orthopedics & Sports Medicine, [place] [address] [email or web address] Hip pain, chronic, right Social [...] Description 03/23/2025 1:30 PM EST Office Visit [facility] 234 [place] [address] Trisha Perera CNP 234 [facility] 7 [place] [address] 06/02/2025 2:00 PM EST Office Visit [facility] 22 [place] [address] Sara Esquivel MD 22 [facility] 3rd [place] [address] Pending Results Name Type Priority Associated Diagnoses [...] right documented in this encounter Care Teams Manager Acquisition Relationship Specialty Start Date End Date Alyse France NP [address] [place] [address] PCP - General Nurse Practitioner 07/19/22 05/26/24 Trisha Perera CNP 234 [facility] 7 [place] [address] PCP - General Nurse Practitioner 05/27/24 documented as of this encounter Additional Source Comments The information contained in this document represents components of the legal health record. It is not the complete legal health record.[facility]
--- OUTSIDE RECORDS SUMMARY | 2025-03-07 20:05 | XMS_ITS | Encounter Summary ---
Author Organization [facility] Address [address] [facility] [address] [place] [address] Phone Care Team Providers Care Balance Recesser Name Role Phone Trisha Perera CNP Primary Care Provider Encounter Details Date Type Department Care Team (Late st Contact Info) Description 02/14/2025 Orders Only [facility] 234 [place] [address] Provider, MD Mariusz [address] [place], [place] [phone] Social History Tobacco Use Types Packs/Day Years [...] Description 03/23/2025 1:30 PM EST Office Visit [facility] 234 [place] [address] Trisha Perera CNP 234 [facility], [address] [place] [address] 06/02/2025 2:00 PM EST Office Visit [facility] [address] [place] [address] Sara Esquivel MD [address] [address] documented as of this encounter Procedures Procedure Name Priority Date/Time Associated Diagnosis Comments MAMMOGRAPHY Routine 02/14/2025 11:38 AM EST documented in this encounter Results * MAMMOGRAPHY FOR RESULT ENTRY ONLY (02/14/2025 11:38 AM EST) us Historical Provider HEALTH MAINTENANCE Final Result documented in this encounter Visit Diagnoses Not on filedocumented in this encounter Care Teams Balance Recesser Relationship Specialty Start Date End Date Trisha Perera CNP [address] [place] [address], [address] [place] [address] PCP - General Nurse Practitioner 05/27/24 documented as of this encounter Additional Source Comments The information contained in this document represents components of the legal health record. It is not the complete legal health record.[facility]
--- OUTSIDE RECORDS SUMMARY | 2025-03-07 20:05 | XMS_ITS | Encounter Summary ---
Author Organization [facility] Address [address] [facility] [address] [place] [address] Phone Care Team Providers Care Hospice Consultant Name Role Phone Alyse France EDUCATIONAL THERAPIST Primary Care Provi mara Trisha Perera CNP Primary Care Provider Encounter Details Date Type Department Care Team (Late Contact Info) Description 12/03/2023 Procedure Pass [facility] Endoscopy Admitting Dept Virtual Department 30 [place] [address] Social History Tobacco Use Types Packs/Day Years [...] Description 03/23/2025 1:30 PM EST Office Visit [facility] 234 [place], [place] [phone] Trisha Perera CNP 234 [facility], [address] [place] [address] 06/02/2025 2:00 PM EST Office Visit [facility] [address] [place] [address] Sara Esquivel MD [address] [address] documented as of this encounter Visit Diagnoses Not on filedocumented in this encounter Care Teams Hospice Consultant Relationship Specialty Start Date End Date Alyse France NP [address] [place] [address] PCP - General Nurse Practitioner 07/19/22 05/26/24 Trisha Perera CNP [address] [place] [address] 7 [place] [address] PCP - General Nurse Practitioner 05/27/24 documented as of this encounter Additional Source Comments The information contained in this document represents components of the legal health record. It is not the complete legal health record.[facility]
== END 2025-03-07 15:32 | disposition home or self-care (01) ==
LOC: HO.HMGAL 15:31
PROVIDERS: PCP Nurse Practitioner Family; Visit Provider Registered Nurse Emergency
DX: J30.89 Other allergic rhinitis (principal)
CPT/HCPCS: 95117; 95165

== ENCOUNTER 2025-03-21 15:40 | Outpatient (AMB) | payer MEDICARE, OTHER, SELFPAY ==
--- OUTSIDE RECORDS SUMMARY | 2025-03-22 01:18 | XMS_ITS | Encounter Summary ---
Author Organization [facility] Address [address] [facility] [address] [place] [address] Phone Care Team Providers Care Peanut Cleaner Name Role Phone Trisha Perera CNP Primary Care Provider Encounter Details Date Type Department Care Team (Late st Contact Info) Description 02/14/2025 Orders Only [facility] 234 [place] [address] Provider, MD Mariusz [address] [place], [place] [id number] Social History Tobacco Use Types Packs/Day Years [...] 03/23/2025 1:30 PM EST Office Visit [facility] 234 [place] [address] Trisha Perera CNP 234 [facility], [address] [place] [address] 06/02/2025 2:00 PM EST Office Visit [facility] [address] [place] [address] Sara Esquivel MD [address] [address] documented as of this encounter Procedures Procedure Name Priority Date/Time Associated Diagnosis Comments MAMMOGRAPHY Routine 02/14/2025 11:38 AM EST documented in this encounter Results * MAMMOGRAPHY FOR RESULT ENTRY ONLY (02/14/2025 11:38 AM EST) us Historical Provider HEALTH MAINTENANCE Final Result documented in this encounter Visit Diagnoses Not on filedocumented in this encounter Care Teams Peanut Cleaner Relationship Specialty Start Date End Date Trisha Perera CNP [address] [place] [address], [address] [place] [address] PCP - General Nurse Practitioner 05/27/24 documented as of this encounter Additional Source Comments The information contained in this document represents components of the legal health record. It is not the complete legal health record.[facility]
--- OUTSIDE RECORDS SUMMARY | 2025-03-22 01:18 | XMS_ITS | Encounter Summary ---
Author Organization [facility] Address [address] [place] [address] Phone Care Team Providers Care Lunch Counter Manager Name Role Phone Alyse France LICENSED PROSTHETIST Primary Care Provi mara Trisha Perera GIZZARD PULLER Primary Care Provider [phone] Reason for Referral * MRI/CAT Scan - Closed Specialty Diagnoses / Procedures Referred By Valarie vo Referred To Contact Radiology Diagnoses Abdominal pain, unspecified abdominal location Procedures CT Abdomen/Pelvis Shelley Thrasher PA 10 [place] [address] Phone: tel: fax: Referral ID Status Reason Start Date Expiration Date Visits Re quested Visits Authorized [id number] Closed 01/19/2024 01/18/2025 1 1 Encounter Details Date Type Department Care Team (Latest Contact Info) Description 01/19/2024 Transcribe Orders Virtual Department 30 [place] [address] Shelley Thrasher PA 10 [place] [address] Abdominal pain, unspecified abdominal location (Primary Dx) [...] Description 03/23/2025 1:30 PM EST Office Visit [facility] 234 [place] [address] Trisha Perera CNP 234 [facility], [address] [place] [address] 06/02/2025 2:00 PM EST Office Visit [facility] 22 [place] [address] Sara Esquivel MD 22 [facility] 3rd [place] [address] documented as of this encounter Results * [...] location documented in this encounter Care Teams Lunch Counter Manager Relationship Specialty Start Date End Date Alyse France NP [address] [place] [address] PCP - General Nurse Practitioner 07/19/22 05/26/24 Trisha Perera CNP [address] [place] [address], [address] [place] [address] [email or web address] PCP - General Nurse Practitioner 05/27/24 documented as of this encounter Additional Source Comments The information contained in this document represents components of the legal health record. It is not the complete legal health record.[facility]
--- OUTSIDE RECORDS SUMMARY | 2025-03-22 01:18 | XMS_ITS | Encounter Summary ---
Author Organization [facility] Address 399 [facility] [address] [place] [address] Phone Care Team Providers Care Television Parts Tester Name Role Phone Alyse France ELECTRIC FURNACE OPERATOR Primary Care Provi mara Trisha Perera ROLLER VARNISHER Primary Care Provider [phone] Encounter Details Date Type Department Care Team (Late Contact Info) Description 10/24/2022 Ancillary Orders [facility] Medicine [address] [place] [address] Cassandra Conn MD [address] [place] [address] Orthopedics & Sports Medicine, [facility] [place] [address] [email or web address] Social History Tobacco Use Types Packs/Day [...] Description 03/23/2025 1:30 PM EST Office Visit [facility] [address] [place] [address] Trisha Perera CNP 234 [facility] 7 [place] [address] 06/02/2025 2:00 PM EST Office Visit [facility] 22 [place] [address] Sara Esquivel MD 22 [facility] 3rd [place] [address] documented as of this encounter Visit Diagnoses Not on filedocumented in this encounter Care Teams Television Parts Tester Relationship Specialty Start Date End Date Alyse France NP [address] [place] [address] PCP - General Nurse Practitioner 07/19/22 05/26/24 Trisha Perera CNP 234 [facility] 7 [place] [address] PCP - General Nurse Practitioner 05/27/24 documented as of this encounter Additional Source Comments The information contained in this document represents components of the legal health record. It is not the complete legal health record.[facility]
--- OUTSIDE RECORDS SUMMARY | 2025-03-22 01:18 | XMS_ITS | Encounter Summary ---
Author Organization [facility] Address [address] [place] [address] Phone Care Team Providers Care Mandrel Cleaner Name Role Phone Alyse France ENERGY SPECIALIST Primary Care Provi mara Trisha Perera MEDICAL ASSEMBLER Primary Care Provider Encounter Details Date Type Department Care Team (Latest Contact Info) Description 10/08/2023 Transcribe Orders Virtual Department 30 [place] [address] Robinson Elizondo MD [address] [place] [address] [phone] Hiatal hernia (Primary Dx); Early satiety Social [...] Description 03/23/2025 1:30 PM EST Office Visit [facility] 234 [place] [address] Trisha Perera CNP 234 [facility], [address] [place] [address] 06/02/2025 2:00 PM EST Office Visit [facility] [address] [place] [address] Sara Esquivel MD 22 [facility] 3rd [place] [address] [email or web address] documented as of this encounter Results * [...] createdby Flynn Peres. Robinson Elizondo MD [facility], [facility] M[facility] Final Result documented in this encounter Visit Diagnoses Diagnosis Hiatal hernia- Primary Diaphragmatic hernia without mention of obstruction or gangrene Early satiety Hiatal hernia Diaphragmatic hernia without mention of obstruction or gangrene Early satiety documented in this encounter Care Teams Mandrel Cleaner Relationship Specialty Start Date End Date Alyse France NP [address] [place] [address] PCP - General Nurse Practitioner 07/19/22 05/26/24 Trisha Perera CNP [address] [place] [address], [address] [place] [address] (work) [email or web address] PCP - General Nurse Practitioner 05/27/24 documented as of this encounter Additional Source Comments The information contained in this document represents components of the legal health record. It is not the complete legal health record.[facility]
--- OUTSIDE RECORDS SUMMARY | 2025-03-22 01:18 | XMS_ITS | Encounter Summary ---
Author Organization [facility] Address [address] [place] [address] Phone Care Team Providers Care Donor Services Team Leader Name Role Phone Alyse France BINGO FLOATER Primary Care Provi mara Trisha Perera CNP Primary Care Provider Encounter Details Date Type Department Care Team (Late Contact Info) Description 01/19/2024 Procedure Pass [facility], Ct Scan - [facility] 30 [place] [address] Social History Tobacco Use Types Packs/Day Years [...] Description 03/23/2025 1:30 PM EST Office Visit [facility] 234 [place] [address] Trisha Perera CNP 234 [facility], [address] [place] [address] 06/02/2025 2:00 PM EST Office Visit [facility] 22 [place] [address] Sara Esquivel MD 22 [facility] 3rd [place] [address] documented as of this encounter Visit Diagnoses Not on filedocumented in this encounter Care Teams Donor Services Team Leader Relationship Specialty Start Date End Date Alyse France NP 95 [place] [address] PCP - General Nurse Practitioner 07/19/22 05/26/24 Trisha Perera CNP [address] [place] [address] 7 [place] [address] PCP - General Nurse Practitioner 05/27/24 documented as of this encounter Additional Source Comments The information contained in this document represents components of the legal health record. It is not the complete legal health record.[facility]
--- OUTSIDE RECORDS SUMMARY | 2025-03-22 01:18 | XMS_ITS | Encounter Summary ---
Author Organization [facility] Address 399 [facility] [address] [place] [address] Phone Care Team Providers Care Master Ocean Name Role Phone Alyse France CLEANER TOUCH UP WORKER Primary Care Provi mara Trisha Perera CNP Primary Care Provider Encounter Details Date Type Department Care Team (Late Contact Info) Description 12/03/2023 Procedure Pass [facility] Admitting Dept Virtual Department 30 [place] [address] Social History Tobacco Use Types Packs/Day Years Used Date Smoking Tobacco: Former Smokeless Tobacco: Never Education Answer Date Recorded Are you interested in more education? Not on gabrielal e 08/09/2022 Are you concerned about learning? [...] Description 03/23/2025 1:30 PM EST Office Visit [facility] Medicine 234 [place], [place] [phone] Trisha Perera CNP 234 [facility], [address] [place] [address] 06/02/2025 2:00 PM EST Office Visit [facility] [address] [place] [address] Sara Esquivel MD [address] [address] documented as of this encounter Visit Diagnoses Not on filedocumented in this encounter Care Teams Master Ocean Relationship Specialty Start Date End Date Alyse France NP [address] [place] [address] PCP - General Nurse Practitioner 07/19/22 05/26/24 Trisha Perera CNP [address] [place] [address] 7 [place] [address] PCP - General Nurse Practitioner 05/27/24 documented as of this encounter Additional Source Comments The information contained in this document represents components of the legal health record. It is not the complete legal health record.[facility]
--- OUTSIDE RECORDS SUMMARY | 2025-03-22 01:18 | XMS_ITS | Clinical Summary ---
Author Organization [facility] Address [address] [facility] [address] [place] [address] Phone Care Team Providers Care Tobacco Wetter Name Role Phone Trisha Perera ESTER Primary [...] Department Care Team Description 02/14/2025 Orders Only [facility] [address] [place] [address] Mariusz Frank MD 01/31/2025 Telephone [facility] [address] [place] [address] Josephine Bautista CMA 01/21/2025 Orders Only [facility] [address] [place] [address] ProviderMariusz MD from Last 3 Months Immunizations [...] Description 03/23/2025 1:30 PM EST Office Visit [facility] 234 [place] [address] Trisha Perera CNP 234 [facility], [address] [place] [address] 06/02/2025 2:00 PM EST Office Visit [facility] [address] [place] [address] Sara Esquivel MD 22 [facility] 3rd [place] [address] Health Maintenance Due Date Last Done Comments [...] (03/10/2023 2:59 PM EST) HDL 96 mg/dL [facility] Comment: Interpretation <40 mg/dL: Low HDL cholesterol (major risk factor for CHD) Greater than or equal to 60 mg/dL: High HDL cholesterol ( negative risk factor for CHD) HDL - cholesterol is affected by a number of factors, e.g. smoking, excerise, hormones, sex and age. CHOLESTEROL 313(H) 0 - 240 mg/dL [facility] TRIGLYCERIDES 122 30 - 160 mg/dL [facility] LDL 193(H) 50 - 129 mg/dL [facility] Comment: LDL levels in terms of risk for coronary heart disease: <100 mg/dL: Optimal 100-129 mg/dL: Near or above optimal 130-159 mg/dL: Borderline high 160-189 mg/dL: High >190 mg/dL: Very High CARDIAC RISK RATIO 3.3 3.3 - 4.4 [facility] Blood 03/10/2023 2:59 PM EST 03/10/2023 3:04 PM EST us Saar Esquivel MD LAB BLOOD BKR ORDERABL ES Final Result [address] [address] from Last 3 Months or Most Recently Relevant to Health Maintenance Insurance MEDICARE PART A & B [facility] MEDICARE SUPPLEMENT MEDICARE PART A & B [employer] MEDICARE SUPPLEMENT MEDICARE PART A & B [facility] [employer] MEDICARE SUPPLEMENT MEDICARE PART A & B [employer] MEDICARE SUPPLEMENT MEDICARE PART A & B [employer] MED[employer]ARE SUPPLEMENT MEDICARE PART A & B [facility] [employer]ION MEDICARE SUPPLEMENT MEDICARE PART A & B [facility] [employer] MEDICARE SUPPLEMENT MEDICARE PART A & B Member Subscriber Plan / Payer ( fective 2011-Present) Name:Mar Ramírez Member ID:[id number] Relation to Subscriber:Self Name:RamírezMar Subscriber ID:[id number] Payer ID:[id number] Group ID:Not on file Type:Medicare Address: [employer] [address] [place] [id number] [facility] [employer] MEDICARE SUPPLEMENT MEDICARE PART A & B [facility] [employer]ION MEDICARE SUPPLEMENT Care Teams Tobacco Wetter Relationship Specialty Start Date End Date Trisha Perera CNP [address] [place] [address] [address] [place] [address] [email or web address] PCP - General Nurse Practitioner 05/27/24 Additional Source Comments The information contained in this document represents components of the legal health record. It is not the complete legal health record.[facility]
--- OUTSIDE RECORDS SUMMARY | 2025-03-22 01:18 | XMS_ITS | Encounter Summary ---
Author Organization [facility] Address 399 [facility] [address] [place] [address] Phone Care Team Providers Care Outside Cutter Name Role Phone Alyse France ENGINE HOSTLER Primary Care Provi mara Trisha Perera CENTRIFUGAL STATION OPERATOR Primary Care Provider [phone] Encounter Details Date Type Department Care Team (Late st Contact Info) Description 10/24/2022 Ancillary Orders [address] [address] Cassandra Conn MD [address] [place] [address] Orthopedics & Sports Medicine, [place] [address] [email or web address] Hip pain, chronic, right Social [...] Description 03/23/2025 1:30 PM EST Office Visit [facility] [address] [place] [address] Trisha Perera CNP 234 [facility] 7 [place] [address] 06/02/2025 2:00 PM EST Office Visit [facility] 22 [place] [address] Sara Esquivel MD 22 [facility] 3rd [place] [address] Pending Results Name Type Priority Associated Diagnoses [...] right documented in this encounter Care Teams Outside Cutter Relationship Specialty Start Date End Date Alyse France NP [address] [place] [address] PCP - General Nurse Practitioner 07/19/22 05/26/24 Trisha Perera CNP 234 [facility] 7 [place] [address] PCP - General Nurse Practitioner 05/27/24 documented as of this encounter Additional Source Comments The information contained in this document represents components of the legal health record. It is not the complete legal health record.[facility]
--- OUTSIDE RECORDS SUMMARY | 2025-03-22 01:18 | XMS_ITS | Encounter Summary ---
Author Organization [facility] Address [address] [place] [address] Phone Care Team Providers Care Sales Agent Casualty Insurance Name Role Phone Trisha Perera ESTER Primary Care Provider [phone] Encounter Details Date Type Department Care Team ([facility] st Contact Info) Description 01/31/2025 Telephone [facility] [address] [place] [address] Josephine Bautista CMA [phone] [place] [address] Social History Tobacco Use Types Packs/Day Years [...] 01/31/2025 9:10 AM EDT Order faxed to [facility] for diagnostic left mammogram and left [...] Description 03/23/2025 1:30 PM EST Office Visit [facility] 234 [place] [address] Trisha Perera CNP [address] [address] 06/02/2025 2:00 PM EST Office Visit [facility] [address] [place] [address] Sara Esquivel MD [address] [address] documented as of this encounter Visit Diagnoses Not on filedocumented in this encounter Care Teams Sales Agent Casualty Insurance Relationship Specialty Start Date End Date Trisha Perera CNP 234 [facility] 7 [place] [address] PCP - General Nurse Practitioner 05/27/24 documented as of this encounter Additional Source Comments The information contained in this document represents components of the legal health record. It is not the complete legal health record.[facility]
== END 2025-03-21 15:42 | disposition home or self-care (01) ==
LOC: HO.HMGAL 15:40
PROVIDERS: PCP Nurse Practitioner Family; Visit Provider Registered Nurse Emergency
DX: J30.89 Other allergic rhinitis (principal)
CPT/HCPCS: 95117; 95165